=== PATIENT | male | born 1930 | race Caucasian/White ===

== ENCOUNTER → 2016-08-08 | Outpatient (CLI) | payer OTHER ==
[~2016-08-08] MED LIST: ASPI81TA28 PO; ATROPO SL; ATV5 SL; ATV5X PO; BIMA0.01 OPB; DORZ2SOL20 OPB; FERR1TAB23 PO; FLM4 PO; HYDR-5688 PO; INSDGIPEN SC; INSDGIPEN SQ; LEVO175T3 PO; LPR25 PO; LSN20 PO; MORP1INJ SL; NRV/10 PO; NVLGIPEN SC; OMEP20CA9 PO; PLV75 PO; SYN125 PO; TRIA37.5 PO; ZCR80 PO; hydrocodone PO
[2016-08-08 12:41] LABS: BASO % 0.3 %; BASO ABS # 0.03 K/uL (0-0.2); COMPLETE YES; EOS % 1.3 %; HEMATOCRIT 48.8 % (42-52); IG% 0.2 %; LYMPH % 19.7 %; LYMPH ABS # 2.02 K/uL (1.2-3.4); MEAN CELL VOLUME 90.4 fL (80-100); MEAN CORPUSCULAR HEMOGLOBIN 31.1 pg (25-34); MEAN CORPUSCULAR HGB CONC 34.4 g/dl (32-36); MONO % 9.1 %; NEUT % 69.4 %; PLATELET COUNT 190 K/uL (130-400); WHITE BLOOD COUNT 10.27 K/uL (4.8-10.8)
[2016-08-08 13:02] LABS: ALT/SGPT 26 U/L (12-78); AST/SGOT 14 U/L (15-37); BLOOD UREA NITROGEN 25 mg/dl (7-18); BUN/CREATININE RATIO 22.5 (10-20); CARBON DIOXIDE 29 mmol/L (21-32); CHLORIDE 98 mmol/L (98-107); CHOLESTEROL 149 mg/dl (0-200); GLUCOSE 123 mg/dl (70-99); SODIUM 136 mmol/L (136-145); TRIGLYCERIDES 123 mg/dl (0-150); VERY LOW DENSITY LIPOPROT CALC 25 mg/dl
[2016-08-08 13:13] LABS: ALB/GLOB RATIO 1.1 (0.9-2); ALKALINE PHOSPHATASE 84 U/L (45-117); CHOLESTEROL/HDL RATIO 3.4; HDL CHOLESTEROL 44 mg/dl
[2016-08-08 13:17] LABS: ESTIMATED AVERAGE GLUCOSE 137 mg/dl; HA1C FLAG Normal (Normal)
[2016-08-08 13:23] LABS: CALCIUM 9.5 mg/dl (8.5-10.1)
== END | disposition home or self-care (01) ==
LOC: C.LABSPEC 12:13
PROVIDERS: ATTEND Internal Medicine
DX: Z00.01 Encounter for general adult medical examination with abnormal findings (principal); I10 Essential (primary) hypertension; E11.9 Type 2 diabetes mellitus without complications; I25.10 Atherosclerotic heart disease of native coronary artery without angina pectoris; R53.83 Other fatigue

== ENCOUNTER 2016-09-23 12:44 | Emergency (ER) | payer OTHER ==
[~2016-09-23] VITALS: Ht 165.1 cm; Wt 78.0 kg
[~2016-09-23 12:44] MED LIST changes: -ASPI81TA28 PO; -ATROPO SL; -ATV5 SL; -ATV5X PO; -FERR1TAB23 PO; -HYDR-5688 PO; -INSDGIPEN SC; -LEVO175T3 PO; -MORP1INJ SL; -NVLGIPEN SC; -PLV75 PO; -hydrocodone PO
[2016-09-23 12:48] VITALS: TEMP 36.6; Ht 165.1 cm; Wt 78.0 kg
--- NOTE | 2016-09-23 13:11 | EMERGENCY ROOM VISIT NOTE ---
History Report prepared by Anastasiya: Patricia Mireles Under the Supervision of: Dr. Carloz Choudhury M.D. First contact with patient: 13:04 Chief Complaint: GROIN PAIN Stated Complaint: GROIN PAIN W/WALKING History of Present Illness The patient is an 86 year old male who presents to the Emergency Room with complaints of persistent right groin pain that began yesterday. He currently rates his discomfort as a 3/10 in severity. The patient states that his pain just started suddenly. He reports worsened pain with ambulation. The patient reports normal urination and bowel movements. He describes his discomfort as a shooting pain. Per the nursing notes, the patient denies any history of kidney stones. Nursing notes report that the patient is scheduled for an upcoming vascular surgery with Dr. Valenzuela. Source of History: patient Onset: yesterday Position: other (right groin) Symptom Intensity: 3/10 Quality: other (shooting) Timing: other (persistent) Modifying Factors (Worsening): other (ambulation) Review of Systems All systems have been listed, reviewed, and are negative other than those previously mentioned. Please see Additional Medical History Sheet. Past Medical & Surgical Medical Problems: (1) Aortocoronary Bypass (2) Coronary Atherosclerosis Of [place] Coronary Vessel (3) Elev Bl Pres W/O Hypertn (4) GI BLEED, ANEMIA, CAD, PAD (5) Glaucoma Nos (6) Hyperlipidemia Nec/Nos (7) Hypertension Nos (8) Hypothyroidism Nos (9) LIGHTHEADEDNESS, CAD, ASVD,BRADYCARDIA (10) Regular Astigmatism Family History Cancer Heart disease Hypertension Social History Smoking Status: Former Smoker Alcohol Use: none Drug Use: none Marital Status: Housing Status: lives alone Occupation Status: retired Current/Historical Medications Scheduled Amlodipine Besylate (Amlodipine Besylate), 10 MG PO DAILY Bimatoprost (Lumigan), 1 DROP OPB HS Clopidogrel Bisulfate (Clopidogrel), 75 MG PO DAILY Dorzolamide Hcl-Timolol Maleat (Cosopt Oph), 1 DROP OPB BID Insulin Glargine (Lantus Solostar), 35 UNITS SQ QAM Insulin Glargine (Lantus Solostar), 15 UNITS SQ QPM Levothyroxine Sodium (Levothyroxine Sodium), 175 MCG PO DAILY Lisinopril (Lisinopril), 20 MG PO BID Metoprolol Tartrate (Lopressor), 25 MG PO BID Omeprazole (Prilosec), 20 MG PO DAILY Simvastatin (Simvastatin), 80 MG PO DAILY Tamsulosin HCl (Tamsulosin HCl), 0.4 MG PO QAM Triamterene/Hctz (Dyazide 37.5MG/25MG), 1 TAB PO DAILY Scheduled PRN Lorazepam (Lorazepam), 0.5 MG PO BID PRN for Anxiety Allergies Coded Allergies: No Known Allergies (Unverified , 02/15/15) Physical Exam Vital Signs Date Time Temp Pulse Resp B/P (MAP) Pulse Ox O2 Delivery O2 Flow Rate FiO2 09/23/16 12:48 36.6 70 20 126/68 98 Room Air Physical Exam GENERAL: Patient awake, alert, oriented x 3. Patient follows commands. Patient does not appear toxic. Patient is adequately hydrated and well- nourished. SKIN: No erythema, pallor, cyanosis or rash HEENT: Normal head, pupils equal, reactive to light and accommodation. Neck: Without adenopathy, no neck vein distention. LUNGS: Clear to auscultation. No wheezes, no rales, no rhonchi. HEART: No murmurs. No gallops. No rubs ABDOMEN: No masses, no rebound, no hepatomegaly or splenomegaly. : Patient has left inguinal hernia, no incarceration. EXTREMITIES: No signs of trauma. No pedal or pretibial edema. No calf or thigh tenderness. NEUROLOGIC: Cranial nerves II-XII within normal limits. No gross motor sensory function deficits. Medical Decision & Procedures ER Provider Diagnostic Interpretation: US results are interpretations by the radiologist and per my review. ABDOMEN FOR HERNIA CLINICAL HISTORY: Suspected right inguinal hernia. Groin pain when walking. COMPARISON STUDY: CT of the abdomen and pelvis October 14, 2015. FINDINGS: Note is made of a reducible fat-containing right inguinal hernia. No bowel loops were identified within the hernia sac. IMPRESSION: Reducible fat-containing right inguinal hernia. Electronically signed by: Vladislav Arriola M.D. 09/23/2016 2:45 PM Dictated Date/Time: 09/23/2016 2:44 PM ED Course 1305: Past medical records reviewed. The patient was evaluated in room A4B. A complete history and physical examination was performed. 1459: I reevaluated the patient and he is resting comfortably. I discussed the exam findings with him and his family and I discussed the treatment plan. He verbalized complete understanding and agreement. He is ready to go home. Medical Decision Nurses notes reviewed. Medical history sheet reviewed. Differential diagnosis includes but is not limited to: inguinal hernia, testicular torsion, hydrocele, muscular strain. Clinically the patient has a right inguinal hernia without incarceration. Ultrasound confirms this diagnosis. The patient is in minimal pain at this time. He is scheduled to have vascular surgery within the next few days so the hernia repair will be delayed. The patient is to follow-up with his family physician and general surgeon. Medication Reconciliation: I attest that I have personally reviewed the patient' s current medication list. Blood pressure Screening: Patient was found to have normal blood pressure on screening and does not require follow up. Impression Primary Impression: Right inguinal hernia Scribe Attestation The scribe's documentation has been prepared under my direction and personally reviewed by me in its entirety. I confirm that the note above accurately reflects all work, treatment, procedures, and medical decision making performed by me. Departure Information Dispostion Home / Self-Care Referrals Wesley Dale M.D. (PCP) Forms HOME CARE DOCUMENTATION FORM, IMPORTANT VISIT INFORMATION Patient Instructions ED Hernia Inguinal, My [facility] Additional Instructions Follow-up with your family physician and general surgeon. Avoid any heavy lifting. Continue all of your current medications as prescribed.
[2016-09-23] MEDS ORDERED: ATV5X PO (14:03)
[2016-09-23] MEDS ORDERED: PLV75 PO (14:03)
[2016-09-23] MEDS ORDERED: LEVO175T3 PO (14:03)
--- NOTE | 2016-09-23 14:47 | DIAGNOSTIC IMAGING REPORT ---
ABDOMEN FOR HERNIA CLINICAL HISTORY: Suspected right inguinal hernia. Groin pain when walking. COMPARISON STUDY: CT of the abdomen and pelvis October 14, 2015. FINDINGS: Note is made of a reducible fat-containing right inguinal hernia. No bowel loops were identified within the hernia sac. IMPRESSION: Reducible fat-containing right inguinal hernia. Electronically signed by: Vladislav Arriola M.D. 09/23/2016 2:45 PM Dictated Date/Time: 09/23/2016 2:44 PM
[2016-09-23 15:15] VITALS: BP 123/71; PULSE 67; O2SAT 99
[2016-12-08] MEDS ORDERED: INSDGIPEN SC ×2 (08:51)
[2016-12-08] MEDS ORDERED: hydrocodone PO (09:13)
== END 2016-09-23 15:24 | disposition home or self-care (01) ==
LOC: C.EDB 12:46 → C.EDA 15:24
DX: K40.90 Unilateral inguinal hernia, without obstruction or gangrene, not specified as recurrent (principal); I25.10 Atherosclerotic heart disease of native coronary artery without angina pectoris; I73.9 Peripheral vascular disease, unspecified; H40.9 Unspecified glaucoma; I10 Essential (primary) hypertension; E03.9 Hypothyroidism, unspecified; E78.5 Hyperlipidemia, unspecified; Z87.891 Personal history of nicotine dependence; Z95.1 Presence of aortocoronary bypass graft; Z82.49 Family history of ischemic heart disease and other diseases of the circulatory system; Z79.02 Long term (current) use of antithrombotics/antiplatelets; Z79.899 Other long term (current) drug therapy

== ENCOUNTER 2016-09-25 05:12 | Day surgery (SDC) | payer OTHER ==
[2016-09-25] VITALS (10 sets, daily range): BP systolic 107–152; BP diastolic 52–74; PULSE 51–66; TEMP 36.6–36.8; O2SAT 93–97; Ht 165.1 cm; Wt 78.0 kg
[~2016-09-25] VITALS: Ht 165.1 cm; Wt 78.0 kg
[~2016-09-25 05:12] MED LIST changes: +ATV5X PO; +LEVO175T3 PO; +PLV75 PO; -SYN125 PO
[2016-09-25] MEDS ORDERED: SODIUM CHLORIDE 0.9% 1000ML IV SCH (06:00)
[2016-09-25] MEDS ORDERED: CEFAZOLIN 1000MG/55 ML D5W IV SCH (06:00)
--- NOTE | 2016-09-25 06:07 | History and Physical ---
History & Physical Date of Service Sep 25, 2016. History & Physical CC: Ischemic left foot HPI: Mr. Slaughter was seen in the office for a followup appointment today regarding his vascular issues, but initially this appointment was made for surveillance of his carotid disease; however, we will also reevaluated the patient for his arterial disease, which is well known. The patient denies any complaints related to his carotid disease including any unilateral weakness, numbness or tingling, facial droop, episodic confusion, difficulty speaking or swallowing or unilateral vision changes. An ultrasound of his carotids performed prior to today's appointment demonstrates no significant change in comparison with the previous ultrasound. Additionally, it demonstrates 60%-69% stenosis of his left internal carotid artery and no significant stenosis in his right, a normal flow in both subclavians and antegrade flow in both vertebrals. This is otherwise without any change from previous ultrasound. When discussing the patient's arterial disease and symptoms with the patient, he specifically denies any rest pain when in bed at night. He also denies any nonhealing wounds or ulcerations or calf claudication. He states that he occasionally gets discomfort in his left foot when he ambulates; however, he denies any discomfort in his calf or thigh muscles. He states that he began to have some red dots appear on his left foot a few weeks ago. He is unable to pinpoint the exact day. He and his daughter who was present with him today as well did have some concerns regarding that. ALLERGIES: No known allergies. MEDICATIONS: Reconciled on the chart and include the following: Amlodipine, clopidogrel, Cosopt ophthalmic solution, Dyazide, Lantus, lisinopril, Lumigan ophthalmic solution, metoprolol, Prilosec, simvastatin, Synthroid and tamsulosin. PAST MEDICAL HISTORY: Positive for coronary artery disease, status post 4- vessel coronary artery bypass graft back in 2005, hypertension, type 2 diabetes mellitus, hypothyroidism, carotid artery stenosis, a left parietal CVA diagnosed in 2014 without any residual deficits. PAST SURGICAL HISTORY: Positive for coronary artery bypass graft x4 in 2006, cataract surgery, excision of parotid gland, repair of inguinal hernia and tonsillectomy. FAMILY HISTORY: Positive for colon cancer. SOCIAL HISTORY: Positive for a past history of tobacco use. The patient states he used to smoke 3 packs a day for 37 years and quit in 1979. He denies alcohol or drug use. REVIEW OF SYSTEMS: Negative for fatigue, fever, sweats, weight loss, exercise intolerance, abnormal moles or rashes, vision changes or photophobia, ear pain, sinus problems or sore throat, cough, shortness of breath, hemoptysis or wheezing, chest pain, palpitations or syncope. He does admit to occasional bilateral lower extremity edema, which is mild. He denies abdominal pain, nausea, vomiting, diarrhea, constipation, dysuria, hematuria, rest pain, nonhealing wounds or ulcers or other complaints. On physical exam, his vital signs are as follows: A blood pressure of 164/64 in the right arm, 154/70 in the left, heart rate is 56, oxygen saturation 97% on room air. Constitutional: In general, the patient is a mildly chronically ill-appearing elderly male in no acute distress. He is somewhat hard of hearing and has hearing aids present. His carotids do not demonstrate a bruit. Lungs are clear. Heart is regular. The patient's bilateral femoral pulses are +1. His lower extremity distal pulses are nonpalpable. His right foot demonstrates good Doppler signals distally with brisk capillary refill, no sign of distal ischemia. His left foot, the toes are somewhat cool with capillary refill at 6 seconds. It appears ischemic in color. He does appear to have a purpuric type rash to the dorsal aspect of his forefoot and toes. This is nontender. There is no warmth as well as significant dependent rubor. He has good movement of the toes and foot and as I said denies any pain or tenderness, and states that this discoloration there has been unchanged for a few weeks now. 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 I have discussed the risks options and benefits of the procedure with the patient. The patient understands the risks options and benefits and agrees to the procedure.
[2016-09-25] MEDS ORDERED: ASPI81TA28 PO (06:08)
[2016-09-25] MEDS ORDERED: FERR1TAB23 PO (06:08)
[2016-09-25 06:14] LABS: BLOOD UREA NITROGEN 19 mg/dl (7-18); CREATININE 0.99 mg/dl (0.60-1.40)
--- NOTE | 2016-09-25 07:40 | History & Physical Bridge Note ---
H&P Re-Evaluation Bridge Note: I have examined the patient, reviewed the History & Physical and in the interval since the performance of the History & Physical I have noted the following changes of clinical significance: No changes noted
--- NOTE | 2016-09-25 07:41 | Procedure Note ---
Pre-Mod Sedation Assessment General Date of Moderate Sedation: Sep 25, 2016. Vital Signs: Vital Signs Past 12 Hours Date Time Temp Pulse Resp B/P (MAP) Pulse Ox O2 Delivery O2 Flow Rate FiO2 09/25/16 06:13 36.8 66 20 152/74 (100) 97 Room Air Pre-Sedation Airway Assessment Oral Cavity: WNL Short Thick Neck: No Hx of Sleep Apnea: No Smoking Status: Former Smoker Mallampati Classification: Class I ASA Classification: Class II Notes The planned sedation has been discussed with the patient and consent obtained. I have identified the patient, determined the appropriateness of sedation and have assessed the patient immediately prior to the procedure. All medicine(s) and interventions are by my order.
[2016-09-25] MEDS ORDERED: FENTANYL CITRATE INJ 50 MCG/1 ML 2 ML VIAL ONE (07:42)
[2016-09-25] MEDS ORDERED: MIDAZOLAM HCL 1 MG/ML 2ML VIAL ONE (07:42)
[2016-09-25] MEDS ORDERED: HEPARIN SOD (PORCINE) 1000 UNIT/ML 10 ML VIAL ONE (07:42)
[2016-09-25] MEDS ORDERED: MIDAZOLAM HCL 1 MG/ML 2ML VIAL IV ONE (08:14)
[2016-09-25] MEDS ORDERED: FENTANYL CITRATE INJ 50 MCG/1 ML 2 ML VIAL IV ONE (08:16)
[2016-09-25] MEDS ORDERED: LIDOCAINE HCL 1% 20 ML VIAL INFIL ONE (08:53)
[2016-09-25] MEDS ORDERED: IODIXANOL (VISIPAQUE) 270 MG/ML 150ML IV ONE (08:53)
--- NOTE | 2016-09-25 09:19 | Procedure Note ---
Post-Moderate Sedation Plan General Date of Moderate Sedation Sep 25, 2016. Vital Signs: Vital Signs Past 12 Hours Date Time Temp Pulse Resp B/P (MAP) Pulse Ox O2 Delivery O2 Flow Rate FiO2 09/25/16 07:53 36.8 66 20 152/74 97 Room Air 09/25/16 06:13 36.8 66 20 152/74 (100) 97 Room Air Review - Discharge Plan Post Moderate Sedation Plan: On clinical assessment, the patient appears to have tolerated the conscious sedation without complications. Patient is recovering as anticipated. Patient will continue to be monitored by nursing and may be discharged when conscious sedation discharge criteria are met.
--- NOTE | 2016-09-25 09:19 | [facility] Post Operative Brief Note ---
Immediate Operative Summary Operative Date Sep 25, 2016. 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
--- NOTE | 2016-09-25 09:21 | Discharge Instructions ---
Discharge Instructions Date of Service Sep 25, 2016. Visit Reason for Visit: Left Superficial Femoral Artery Occulusion W/Rest Discharge Discharge Diagnosis / Problem: Left popliteal artery occlusion Discharge Goals Goal(s): Diagnostic testing Activity Recommendations Activity Limitations: per Instructions/Follow-up section Anesthesia . Post Anesthesia Instructions: If you have had General Anesthesia or IV Sedation: * Do not drive today. * Resume driving when surgeon permits. * Do not make important decisions or sign legal documents today. * Call surgeon for: 1. Temperature elevations greater than 101 degrees F. 2. Uncontrollable pain. 3. Excessive bleeding. 4. Persistent nausea and vomiting. 5. Medication intolerance (nausea, vomiting or rash). * For nausea and vomiting use only clear liquids such as: tea, soda, bouillon until nausea subsides, then gradually increase diet as tolerated. * If you have any concerns or questions, call your surgeon's office. If physician is unavailable and it is an emergency, call 911 or go to the nearest emergency room. . Instructions / Follow-Up Instructions / Follow-Up Call [phone] to schedule a follow up appointment if one not already scheduled. SPECIAL CARE INSTRUCTIONS: Medications: * Continue to take your medications as directed. If you have been given a prescription for Plavix, please fill it immediately and take as directed. Incision Care: * Your puncture site may have some bruising and minor swelling for about one week. * You will have a small dressing covering your puncture site. You may remove the dressing after 24 hours and shower. You may let the warm soapy water run over it, but be sure to dry the puncture site well and keep it dry. * DO NOT IMMERSE THE INCISION IN A TUB/POOL/etc. UNTIL HEALED. * Puncture sites should be kept covered with a band-aid until it begins to heal. Restrictions: * Depending on whether you leg or arm was punctured to access the arteries, you will be required to lay flat, hold your arm still, or both, for about 4 hours after the procedure to prevent bleeding. * Limit your activity for the first 48 hours. You may walk and go up and down steps. Avoid excessive bending or movement at the puncture site. Possible Complications: * Excessive Swelling - after blood flow is improved you may notice increased swelling in the lower legs. This is a normal response. This usually depends on the amount of blockages in the leg, how long they have been there prior to your procedure and how much blood flow was restored. Elevating your legs will help to improve this. Please notify our office ([phone] ) if the swelling does not go away after lying in bed overnight. * Infection/Drainage/Bleeding - Drainage or bleeding from the puncture site should be minimal. If you have excessive bleeding or drainage, call our office ([phone]) right away. * Pain - You may experience some mild pain or soreness at your puncture site. If your pain does not improve, please contact our office ([phone]). Call your doctor and seek emergent treatment if you develop: * Temperature above 101 degrees * Any fever or chills * Any redness or purulent drainage from the puncture site * Any new dusky/blue colored toes or feet with coolness or sharp or aching pain. SKIN IRRITATION: * You may experience some redness and/or swelling in the area where radiation was administered. If any skin irritation occurs, please contact your family physician. FOLLOW UP VISIT: Keep any scheduled doctor appointments. Diet Recommendations Recommended Home Diet: resume previous diet Procedures Procedures Performed: Left Lower Extremity Angiogram Moderate Sedation [id number] Pending Studies Studies pending at discharge: no Medical Emergencies . Who to Call and When: Medical Emergencies: If at any time you feel your situation is an emergency, please call 911 immediately. . Non-Emergent Contact Non-Emergency issues call your: Surgeon . . "Provider Documentation" section prepared by Barber Valenzuela. .
--- NOTE | 2016-11-01 07:43 | [facility] Operative Report ---
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 He is admitted at this time for arteriography and possible intervention. He was found to have a proximal popliteal artery occlusion on noninvasive testing. He understands the risks options benefits and agrees to go ahead with this procedure. Description of Procedure Patient was taken to the angiogram suite and placed in the supine position. After both groins are prepped and draped in a sterile manner local anesthetic was administered to the right groin. A percutaneous puncture was made of the right common femoral artery and an 035 wire was inserted. A 5 Amharic sheath was inserted over the wire. Using a rim catheter and an 035 Glidewire the left iliac was cannulated from the right side. The rim cath was advanced down to the distal external iliac artery. Arteriography left lower extremity was then performed. This showed the common femoral and profunda femoral arteries to be widely patent with moderate amount of calcification seen. Superficial femoral artery was also patent down to the adductor hiatus where a short occlusion was seen with heavy calcifications. There is also a significant narrowing of the mid to distal popliteal artery measuring approximately 80%. This was a very short lesion. Runoff vessels showed the anterior tibial and posterior tibial arteries to be occluded. The peroneal artery was patent down to the ankle with runoff onto the foot. We did attempt to cross the popliteal occlusion with an 035 glidewire and a quick cross catheter. However the lesion was too heavily calcified to be crossed. We then injected the sheath on the right side which showed that the puncture was anterior in the common femoral artery. A Star closure device is used to close the puncture site. Adequate hemostasis was noted. The patient left the angio suite in good condition and tolerated procedure well. I attest to the content of the Intraoperative Record and any orders documented therein. Any exceptions are noted below.
[2016-12-08] MEDS ORDERED: INSDGIPEN SC ×2 (08:51)
[2016-12-08] MEDS ORDERED: hydrocodone PO (09:13)
== END 2016-09-25 14:00 | disposition home or self-care (01) ==
LOC: C.ACU 05:12
PROVIDERS: ATTEND Surgery Vascular Surgery
DX: I74.3 Embolism and thrombosis of arteries of the lower extremities (principal); I99.8 Other disorder of circulatory system; I25.10 Atherosclerotic heart disease of native coronary artery without angina pectoris; Z95.1 Presence of aortocoronary bypass graft; I10 Essential (primary) hypertension; E11.9 Type 2 diabetes mellitus without complications; E03.9 Hypothyroidism, unspecified; Z86.73 Personal history of transient ischemic attack (TIA), and cerebral infarction without residual deficits; Z98.49 Cataract extraction status, unspecified eye; Z98.890 Other specified postprocedural states; Z90.89 Acquired absence of other organs; Z87.891 Personal history of nicotine dependence

== ENCOUNTER 2016-12-15 06:04 | Inpatient (IN) | payer OTHER ==
[2016-12-08 08:51] VITALS: Ht 165.1 cm; Wt 77.6 kg
--- NOTE | 2016-12-08 09:38 | PAT Medication Instructions ---
Service Date Dec 08, 2016. Current Home Medication List Amlodipine Besylate (Amlodipine Besylate), 10 MG PO DAILY Aspirin (Aspirin Ec), 81 MG PO QAM Bimatoprost (Lumigan), 1 DROP OPB HS Clopidogrel Bisulfate (Clopidogrel), 75 MG PO QAM Dorzolamide Hcl-Timolol Maleat (Cosopt Oph), 1 DROP OPB BID Ferrous Sulfate (Iron), 325 MG PO QAM Insulin Glargine (Lantus Solostar), 35 UNITS SC QAM Insulin Glargine (Lantus Solostar), 15 UNITS SC QPM Levothyroxine Sodium (Levothyroxine Sodium), 175 MCG PO QAM Lisinopril (Lisinopril), 20 MG PO BID Lorazepam (Lorazepam), 0.5 MG PO BID PRN for Anxiety Metoprolol Tartrate (Lopressor), 25 MG PO BID Omeprazole (Prilosec), 20 MG PO QPM Simvastatin (Simvastatin), 80 MG PO QAM Tamsulosin HCl (Tamsulosin HCl), 0.4 MG PO QAM Triamterene/Hctz (Dyazide 37.5MG/25MG), 1 TAB PO QAM [hydrocodone ], Unknown Dose PO Q6 PRN for Pain Medication Instructions For Your Scheduled Surgery - Check with surgeon/Dr. Tai Calvo for instructions: Clopidogrel Bisulfate (Clopidogrel), 75 MG PO QAM - Hold the following medications the morning of surgery: Tamsulosin HCl (Tamsulosin HCl), 0.4 MG PO QAM Triamterene/Hctz (Dyazide 37.5MG/25MG), 1 TAB PO QAM Lisinopril (Lisinopril), 20 MG PO BID Ferrous Sulfate (Iron), 325 MG PO QAM - Take the following medications the morning of surgery with a sip of water: [hydrocodone ], Unknown Dose PO Q6 PRN for Pain (okay to take up to 4 hours prior to surgery if needed) Simvastatin (Simvastatin), 80 MG PO QAM Lorazepam (Lorazepam), 0.5 MG PO BID PRN for Anxiety (if needed) Metoprolol Tartrate (Lopressor), 25 MG PO BID Levothyroxine Sodium (Levothyroxine Sodium), 175 MCG PO QAM Dorzolamide Hcl-Timolol Maleat (Cosopt Oph), 1 DROP OPB BID Amlodipine Besylate (Amlodipine Besylate), 10 MG PO DAILY Aspirin (Aspirin Ec), 81 MG PO QAM - Hold the following medications as scheduled the night before surgery: Lisinopril (Lisinopril), 20 MG PO BID - Take the following medications as scheduled the night before surgery: [hydrocodone ], Unknown Dose PO Q6 PRN for Pain (if needed) Lorazepam (Lorazepam), 0.5 MG PO BID PRN for Anxiety (if needed) Metoprolol Tartrate (Lopressor), 25 MG PO BID Omeprazole (Prilosec), 20 MG PO QPM Insulin Glargine (Lantus Solostar), 15 UNITS SC QPM Dorzolamide Hcl-Timolol Maleat (Cosopt Oph), 1 DROP OPB BID Bimatoprost (Lumigan), 1 DROP OPB HS - For Insulin Dependent Diabetic patients: Test blood sugar A.M. of surgery. - If blood sugar greater than 150, take half of your regular dose of: Insulin Glargine (Lantus Solostar), take 17 units - If blood sugar less than 150, do not take any: Insulin Glargine If you have any questions please call us at [phone] or [phone] or [phone]
--- NOTE | 2016-12-08 10:11 | DIAGNOSTIC IMAGING REPORT ---
TWO VIEW CHEST CLINICAL HISTORY: Preoperative examination. FINDINGS: PA and lateral chest radiographs are compared to study dated 09/21/2015 and correlated with chest CT dated 10/14/2015. The PA view is degraded by patient rotation. The patient is status post midline sternotomy. The heart is enlarged and there is atherosclerotic calcification of the thoracic aorta. Emphysema and chronic interstitial thickening are similar to previous. No airspace consolidation or pleural effusion is identified. There is no pneumothorax. The skeletal structures are osteopenic. The bony thorax appears intact. Chronic changes noted in the right humeral head. IMPRESSION: Cardiomegaly and emphysema with no active disease in the chest. Electronically signed by: Brad Kc M.D. 12/08/2016 10:09 AM Dictated Date/Time: 12/08/2016 10:08 AM
[2016-12-08 10:36] LABS: BASO % 0.3 %; BASO ABS # 0.02 K/uL (0-0.2); COMPLETE YES; EOS % 0.8 %; HEMATOCRIT 42.8 % (42-52); IG% 0.2 %; LYMPH % 21.7 %; LYMPH ABS # 1.44 K/uL (1.2-3.4); MEAN CELL VOLUME 89.7 fL (80-100); MEAN CORPUSCULAR HEMOGLOBIN 30.6 pg (25-34); MEAN CORPUSCULAR HGB CONC 34.1 g/dl (32-36); MEAN PLATELET VOLUME 10.2 fL (7.4-10.4); MONO % 12.3 %; NEUT % 64.7 %; PLATELET COUNT 197 K/uL (130-400); RED BLOOD COUNT 4.77 M/uL (4.7-6.1); WHITE BLOOD COUNT 6.64 K/uL (4.8-10.8)
[2016-12-08 10:49] LABS: PROTHROMBIN TIME (PATIENT) 10.9 SECONDS (9.0-12.0)
[2016-12-08 11:51] LABS: BUN/CREATININE RATIO 24.6 (10-20); CALCIUM 8.7 mg/dl (8.5-10.1); CREATININE 0.98 mg/dl (0.60-1.40); POTASSIUM 4.1 mmol/L (3.5-5.1)
[~2016-12-15] VITALS: Ht 165.1 cm; Wt 77.6 kg
[2016-12-15] VITALS (27 sets, daily range): BP systolic 72–160; BP diastolic 34–67; PULSE 60–87; TEMP 36.5–36.8; O2SAT 88–99
[~2016-12-15 06:04] MED LIST changes: +ASPI81TA28 PO; +CEFAZOLIN 1000MG/55 ML D5W IV SCH; +FERR1TAB23 PO; +INSDGIPEN SC; -INSDGIPEN SQ; +LACTATED RINGER'S 1000ML 1,000 ML IV SCH; +hydrocodone PO
--- NOTE | 2016-12-15 06:29 | History and Physical ---
History & Physical Date of Service Dec 15, 2016. History & Physical CC: Ischemic left foot HPI: Mr. Slaughter is an 86 year old white male being seen for surveillance of his carotid disease; however, he was also reevaluated for his arterial disease, which is well known. The patient denies any complaints related to his carotid disease including any unilateral weakness, numbness or tingling, facial droop, episodic confusion, difficulty speaking or swallowing or unilateral vision changes. An ultrasound of his carotids performed prior to today's appointment demonstrates no significant change in comparison with the previous ultrasound. Additionally, it demonstrates 60%-69% stenosis of his left internal carotid artery and no significant stenosis in his right, a normal flow in both subclavians and antegrade flow in both vertebrals. This is otherwise without any change from previous ultrasound. When discussing the patient's arterial disease and symptoms with the patient, he does complain of rest pain when in bed at night. He denies any nonhealing wounds or ulcerations or calf claudication. He states that he gets discomfort in his left foot when he ambulates; however, he denies any discomfort in his calf or thigh muscles. He states that he began to have some red dots appear on his left foot a few weeks ago. He is unable to pinpoint the exact day. He and his daughter who was present with him today as well did have some concerns regarding that. He was found to have an SFA occlusion but failed at an endovascular approach. His rest pain has worsened and his foot has become more reddened. ALLERGIES: No known allergies. MEDICATIONS: Reconciled on the chart and include the following: Amlodipine, clopidogrel, Cosopt ophthalmic solution, Dyazide, Lantus, lisinopril, Lumigan ophthalmic solution, metoprolol, Prilosec, simvastatin, Synthroid and tamsulosin. PAST MEDICAL HISTORY: Positive for coronary artery disease, status post 4- vessel coronary artery bypass graft back in 2005, hypertension, type 2 diabetes mellitus, hypothyroidism, carotid artery stenosis, a left parietal CVA diagnosed in 2014 without any residual deficits. PAST SURGICAL HISTORY: Positive for coronary artery bypass graft x4 in 2005, cataract surgery, excision of parotid gland, repair of inguinal hernia and tonsillectomy. FAMILY HISTORY: Positive for colon cancer. SOCIAL HISTORY: Positive for a past history of tobacco use. The patient states he used to smoke 3 packs a day for 37 years and quit in 1979. He denies alcohol or drug use. REVIEW OF SYSTEMS: Negative for fatigue, fever, sweats, weight loss, exercise intolerance, abnormal moles or rashes, vision changes or photophobia, ear pain, sinus problems or sore throat, cough, shortness of breath, hemoptysis or wheezing, chest pain, palpitations or syncope. He does admit to occasional bilateral lower extremity edema, which is mild. He denies abdominal pain, nausea, vomiting, diarrhea, constipation, dysuria, hematuria, rest pain, nonhealing wounds or ulcers or other complaints. On physical exam, his vital signs are as follows: A blood pressure of 164/64 in the right arm, 154/70 in the left, heart rate is 56, oxygen saturation 97% on room air. Constitutional: In general, the patient is a mildly chronically ill-appearing elderly male in no acute distress. He is somewhat hard of hearing and has hearing aids present. His carotids do not demonstrate a bruit. Lungs are clear. Heart is regular. The patient's bilateral femoral pulses are +1. His lower extremity distal pulses are nonpalpable. His right foot demonstrates good Doppler signals distally with brisk capillary refill, no sign of distal ischemia. His left foot, the toes are somewhat cool with capillary refill at 6 seconds. It appears ischemic in color. He does appear to have a purpuric type rash to the dorsal aspect of his forefoot and toes. This is nontender. There is no warmth as well as significant dependent rubor. He has good movement of the toes and foot and as I said denies any pain or tenderness, and states that this discoloration there has been unchanged for a few weeks now. 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 I have discussed the risks options and benefits of the procedure with the patient. The patient understands the risks options and benefits and agrees to the procedure.
[2016-12-15] MEDS ORDERED: FENTANYL CITRATE INJ 50 MCG/1 ML 2 ML VIAL ONE ×2 (07:00→10:59)
[2016-12-15] MEDS ORDERED: MIDAZOLAM HCL 1 MG/ML 2ML VIAL ONE (07:00)
[2016-12-15] MEDS ORDERED: IODIXANOL (VISIPAQUE) 270 MG/ML 50ML ONE (07:02)
[2016-12-15] MEDS ORDERED: GELATIN SPONGE SZ 100 ONE (07:02)
[2016-12-15] MEDS ORDERED: THROMBIN 5000 UNITS KIT ONE (07:03)
[2016-12-15] MEDS ORDERED: HEPARIN SOD (PORCINE) 1000 UNIT/ML 10 ML VIAL ONE ×2 (07:03→10:16)
[2016-12-15] MEDS ORDERED: CEFAZOLIN SOD 1 GM VIAL ONE (07:03)
[2016-12-15] MEDS ORDERED: PAPAVERINE HCL INJ 30 MG/ML 2 ML VIAL ONE (07:03)
[2016-12-15] MEDS ORDERED: HYDR-5688 PO (07:15)
[2016-12-15] MEDS ORDERED: TRIA37.5 PO (07:15)
[2016-12-15] MEDS ORDERED: LABETALOL HCL IV 5 MG/ML 20ML IV PRN (07:30)
[2016-12-15] MEDS ORDERED: ATROPINE SULFATE 0.1 MG/ML 5ML SYR IV PRN (07:30)
[2016-12-15] MEDS ORDERED: ONDANSETRON INJ 2 MG/ML 2 ML VIAL IV PRN (07:30)
[2016-12-15] MEDS ORDERED: HYDROmorphone INJ 2 MG/ML SYR/VIAL IV PRN (07:30)
[2016-12-15] MEDS: LIDOCAINE HCL 1% 20 ML VIAL ONE ×2 (08:54→12:00)
[2016-12-15] MEDS: BUPIVACAINE/EPINEPHRINE 0.5% MPF 1:200,000 10 ML VIAL ONE ×4 (08:54→12:01)
[2016-12-15] MEDS ORDERED: ROCURONIUM BROMIDE 10 MG/ML 5 ML VIAL IV ONE (09:06)
[2016-12-15] MEDS ORDERED: ETOMIDATE 2 MG/ML 20 ML VIAL IV ONE (09:06)
[2016-12-15] MEDS ORDERED: EpHEDrine SULFATE 50MG/5ML SYR ONE ×2 (09:06→10:16)
[2016-12-15] MEDS ORDERED: LIDOCAINE HCL 2% 2 ML VIAL (20MG/ML) ONE (09:06)
[2016-12-15] MEDS ORDERED: PROPOFOL IV EMULSION 10 MG/ML 20 ML VIAL IV ONE (09:06)
[2016-12-15] MEDS ORDERED: IODIXANOL (VISIPAQUE) 270 MG/ML 50ML IV ONE (10:01)
[2016-12-15] MEDS ORDERED: PHENYLEPHRINE HCL INJ 10 MG/ML VIAL ONE (10:16)
[2016-12-15] MEDS ORDERED: D5W AND 1/2NSS 1,000 ML IV SCH (12:03)
--- NOTE | 2016-12-15 12:03 | [facility] Post Operative Brief Note ---
Immediate Operative Summary Operative Date Dec 15, 2016. Pre-Operative Diagnosis Left Superficial Femoral Artery Occlusion with Ischemic Left Foot Post-Operative Diagnosis Left Superficial Femoral Artery Occlusion with Ischemic Left Foot Procedure(s) Performed Left femoral to popliteal hybrid bypass, exploration of peroneal artery, left lower extremity arteriogram with insertion of popliteal stent. Surgeon Nicolas Food Production Supervisor Surgeon(s) Kaylyn Barth PA-C Estimated Blood Loss 600 ml Findings doppler flow to collateral branch on foot, peroneal heavily calcified and not useable for anastomosis Specimens None. Anesthesia gen Complication(s) None Disposition Recovery Room / PACU
[2016-12-15] MEDS ORDERED: GLUCOSE 10 TABS/TUBE PO PRN (12:15)
[2016-12-15] MEDS ORDERED: ACETAMINOPHEN 325 MG TAB PO PRN (12:15)
[2016-12-15] MEDS ORDERED: GLUCAGON FOR INJ 1 MG VIAL SQ PRN (12:15)
[2016-12-15] MEDS ORDERED: LORAZEPAM 0.5 MG TAB PO PRN (12:15)
[2016-12-15] MEDS ORDERED: GLUCOSE 40% GEL 15 GM TUBE PO PRN (12:15)
[2016-12-15] MEDS ORDERED: MoRPHine SULFATE 4 MG/ML 1 ML CARP\\VIAL IV PRN (12:15)
[2016-12-15] MEDS ORDERED: DEXTROSE 50% 50 ML SYR IV PRN (12:15)
[2016-12-15 12:41] LABS: ISTAT HEMOGLOBIN 12.6 g/dl (14.0-18.0); ISTAT IONIZED CALCIUM 1.15 mmol/l (1.12-1.32)
--- NOTE | 2016-12-15 13:34 | Anesthesiology Progress Note ---
Anesthesia Post Op Note Date & Time Dec 15, 2016 at 13:33 Vital Signs Pain Intensity: 0 Vital Signs Past 12 Hours Date Time Temp Pulse Resp B/P (MAP) Pulse Ox O2 Delivery O2 Flow Rate FiO2 12/15/16 13:20 78 20 91/51 98 Nasal Cannula 3 12/15/16 13:10 76 22 100/49 99 Oxymask 10 12/15/16 13:00 79 20 97/49 99 Oxymask 10 12/15/16 12:50 36.2 76 18 92/67 99 Oxymask 10 12/15/16 06:55 36.5 60 20 136/57 95 Room Air 160/67 Notes Mental Status: alert / awake / arousable, participated in evaluation Pt Amnestic to Procedure: Yes Nausea / Vomiting: adequately controlled Pain: adequately controlled Airway Patency, RR, SpO2: stable & adequate BP & HR: stable & adequate Hydration State: stable & adequate Anesthetic Complications: no major complications apparent
[2016-12-15 13:45] LABS: HEMATOCRIT 36.2 % (42-52); MEAN CORPUSCULAR HEMOGLOBIN 30.4 pg (25-34); MEAN CORPUSCULAR HGB CONC 33.4 g/dl (32-36); MEAN PLATELET VOLUME 9.6 fL (7.4-10.4); PLATELET COUNT 199 K/uL (130-400); RED BLOOD COUNT 3.98 M/uL (4.7-6.1); WHITE BLOOD COUNT 17.05 K/uL (4.8-10.8)
[2016-12-15 14:19] LABS: BASO % 0.1 %; BASO ABS # 0.01 K/uL (0-0.2); COMPLETE YES; ECHINOCYTES 1+; EOS % 0.2 %; HYPERSEGMENTED POLYS 1+; IG% 0.4 %; LYMPH % 12.8 %; LYMPH ABS # 2.18 K/uL (1.2-3.4); NEUT % 77.5 %
[2016-12-15] MEDS: ONDANSETRON INJ 2 MG/ML 2 ML VIAL IV PRN (15:02)
[2016-12-15] MEDS ORDERED: PHENYLEPHRINE HCL INJ 20 MG in DEXTROSE 5% 500ML 500 ML IV PRN (15:14)
[2016-12-15] MEDS ORDERED: DEXTROSE 5% IV PRN (15:30)
[2016-12-15] MEDS ORDERED: PHENYLEPHRINE HCL IV PRN (15:30)
[2016-12-15] MEDS: CEFAZOLIN IV 1,000 MG in DEXTROSE 5% 50ML 50 ML IV SCH (15:49)
[2016-12-15] MEDS: INSULIN HUMAN REGULAR SC SCH ×2 (15:50→21:04)
--- NOTE | 2016-12-15 16:44 | Critical Care Consultation ---
Critical Care Consultation Date of Consultation: Dec 15, 2016. Attending Physician: Barber Valenzuela M.D. Reason for Consultation: Post operative management of fem-pop bypass History of Present Illness 86 year old male with known vascular disease was admitted to the ICU s/p left fem-pop bypass and popliteal artery stent placement He was seeing Dr. Valenzuela several months ago when he mentioned that he was having pain in his left lower extremity at night time. The pain started a 6-7 months ago and started getting progressively worse; thus waking him from sleep. He also stated that he started getting discomfort in his left foot when walking a short distance. A couple months ago he had angiography which showed an SFA occlusion and he went for endovascular surgery which failed at the time. He then went to Dr. Valenzuela's office last week as the pain in his leg was very severe and he was only able to walk half a block before the pain resolved. His foot had also become more red in colour and he had noticed some small red dots on his foot. He was scheduled for fem pop bypass surgery in order to circumvent the SFA occlusion. The surgery was done on 12/15/2016 in the morning The surgery performed was a left femoral to popliteal hybrid bypass with the use of synthetic material. He also had the insertion of a popliteal stent placed. We were consulted post op to evaluate and co-manage the patient. Past Medical/Surgical History PAST MEDICAL HISTORY: Positive for coronary artery disease, status post 4- vessel coronary artery bypass graft back in 2005, hypertension, type 2 diabetes mellitus, hypothyroidism, carotid artery stenosis, a left parietal CVA diagnosed in 2014 without any residual deficits, esophageal cancer (caught at very early stage, did not receive chemo, or radiation and is in remission) PAST SURGICAL HISTORY: Positive for coronary artery bypass graft x4 in 2005, cataract surgery, excision of parotid gland, repair of inguinal hernia and tonsillectomy. Family History Cancer Heart disease Hypertension Mother: heart attack in 70's Dad: of pulmonary emphysema Social History Smoking Status: Former Smoker (111 pack year smoking history) Drug Use: none Marital Status: Housing Status: lives alone Occupation Status: retired Allergies Coded Allergies: No Known Allergies (Unverified , 12/15/16) Home Medications Scheduled Amlodipine Besylate (Amlodipine Besylate), 10 MG PO DAILY Aspirin (Aspirin Ec), 81 MG PO QAM Bimatoprost (Lumigan), 1 DROP OPB HS Clopidogrel Bisulfate (Clopidogrel), 75 MG PO QAM Dorzolamide Hcl-Timolol Maleat (Cosopt Oph), 1 DROP OPB BID Ferrous Sulfate (Iron), 325 MG PO QAM Insulin Glargine (Lantus Solostar), 35 UNITS SC QAM Insulin Glargine (Lantus Solostar), 15 UNITS SC QPM Levothyroxine Sodium (Levothyroxine Sodium), 175 MCG PO QAM Lisinopril (Lisinopril), 20 MG PO BID Metoprolol Tartrate (Lopressor), 25 MG PO BID Omeprazole (Prilosec), 20 MG PO QPM Simvastatin (Simvastatin), 80 MG PO QAM Tamsulosin HCl (Tamsulosin HCl), 0.4 MG PO QAM Triamterene/Hctz (Dyazide 37.5MG/25MG), 1 TAB PO QAM Triamterene/Hctz (Dyazide 37.5MG/25MG), 1 CAP PO DAILY Scheduled PRN Hydrocodone/Acetaminophen 5MG/325MG (Lottie 5MG/325MG), 1 TAB PO TID PRN for Pain Lorazepam (Lorazepam), 0.5 MG PO BID PRN for Anxiety Current Inpatient Medications Current Inpatient Medications Medications (Trade) Dose Ordered Sig/[place] Route Start Time Stop Time Status Last Admin Dose Admin Cefazolin Sodium 55 ml @ 100 mls/hr PREOP IV 12/15/16 06:00 12/15/16 18:00 12/15/16 08:03 100 MLS/HR Lactated Ringer's 1,000 ml @ 80 mls/hr [id number] IV 12/15/16 06:00 12/16/16 06:59 12/15/16 07:00 80 MLS/HR Lactated Ringer's 1,000 ml @ 15 mls/hr Q24H IV 12/15/16 06:00 12/16/16 05:59 Acetaminophen (Tylenol Tab) 650 mg Q4H PRN PO 12/15/16 12:15 01/14/17 12:14 Oxycodone/ Acetaminophen (Percocet 5-325mg Tab) `1-2 TABS FOR MODER... Q4H PRN PO 12/15/16 12:15 12/29/16 12:14 Morphine Sulfate (MoRPHine SULFATE INJ) 4 mg Q2H PRN IV 12/15/16 12:15 12/29/16 12:14 Ondansetron HCl (Zofran Inj) 4 mg Q6H PRN IV 12/15/16 12:15 01/14/17 12:14 12/15/16 15:02 4 MG Pantoprazole Sodium 40 mg/ Syringe 10 ml @ 5 mls/min DAILY@11 IV 12/16/16 11:00 01/15/17 10:59 Cefazolin Sodium 1000 mg/Dextrose 55 ml @ 100 mls/hr Q8H IV 12/15/16 16:00 12/16/16 00:32 Enoxaparin Sodium (Lovenox Inj) 30 mg Q12 SQ 12/15/16 20:00 01/14/17 19:59 Dextrose/Sodium Chloride 1,000 ml @ 125 mls/hr Q8H IV 12/15/16 12:03 12/15/16 20:02 12/15/16 15:43 125 MLS/HR Aspirin (Ecotrin Tab) 81 mg QAM PO 12/16/16 09:00 01/15/17 08:59 Clopidogrel Bisulfate (plAVix TAB) 75 mg QAM PO 12/16/16 09:00 01/15/17 08:59 Dorzolamide/ Timolol (Cosopt Op Soln) 1 drops BID OPB 12/15/16 21:00 01/14/17 20:59 Insulin Glargine (Lantus Solostar Pen) 15 units QPM SC 12/15/16 21:00 01/14/17 20:59 Insulin Glargine (Lantus Solostar Pen) 35 units QAM SC 12/16/16 09:00 01/15/17 08:59 Levothyroxine Sodium (Synthroid Tab) 175 mcg DAILYBB PO 12/16/16 06:00 01/15/17 05:59 Lisinopril (Zestril Tab) 20 mg BID PO 12/15/16 21:00 01/14/17 20:59 Lorazepam (Ativan Tab) 0.5 mg BID PRN PO 12/15/16 12:15 01/14/17 12:14 Metoprolol Tartrate (Lopressor Tab) 25 mg BID PO 12/15/16 21:00 01/14/17 20:59 Simvastatin (Zocor Tab) 80 mg QAM PO 12/16/16 09:00 01/15/17 08:59 Tamsulosin HCl (Flomax Cap) 0.4 mg QAM PO 12/16/16 09:00 01/15/17 08:59 Triamterene/HCTZ (Dyazide 37.5/25 Mg Cap) 1 cap QAM PO 12/16/16 09:00 01/15/17 08:59 Amlodipine Besylate (Norvasc Tab) 10 mg DAILY PO 12/16/16 09:00 01/15/17 08:59 Bimatoprost (Lumigan 0.01%) 1 drops HS OPB 12/15/16 21:00 01/14/17 20:59 Ferrous Sulfate (Feosol Tab) 325 mg QAM PO 12/16/16 09:00 01/15/17 08:59 Insulin Human Regular (novoLIN-R) SLIDING SCALE IF C... ACHS SC 12/15/16 16:00 01/14/17 15:59 Glucose (Glucose 40% Gel) 15-30 GRAMS 15 GRAMS... UD PRN PO 12/15/16 12:15 01/14/17 12:14 Glucose (Glucose Chew Tab) 4-8 Tablets 4 Tabl... UD PRN PO 12/15/16 12:15 01/14/17 12:14 Dextrose (Dextrose 50% 50ML Syringe) 25-50ML OF 50% DW IV FOR... UD PRN IV 12/15/16 12:15 01/14/17 12:14 Glucagon (Glucagon Inj) 1 mg UD PRN SQ 12/15/16 12:15 01/14/17 12:14 Morphine Sulfate (MoRPHine SULFATE INJ) 2 mg Q2H PRN IV 12/15/16 13:45 12/29/16 13:44 Phenylephrine HCl 20 mg/Dextrose 500 ml @ 0 mls/hr Q0M PRN IV 12/15/16 15:30 01/14/17 15:29 12/15/16 15:43 57.8 MLS/HR Review of Systems Constitutional: No fever, No chills, No sweats Eyes: No worsening of vision, No diplopia ENT: No hearing loss, No trouble swallowing Respiratory: No cough, No shortness of breath Cardiovascular: No chest pain, No edema, No palpitations Abdomen: + nausea, No pain, No vomiting, No diarrhea, No constipation Musculoskeletal: No joint pain, No swelling, No calf pain Neurologic: No paralysis, No numbness/tingling, No balance problems Integumentary: No rash, No itch, No new/changing skin lesions Physical Exam Date Time Temp Pulse Resp B/P (MAP) Pulse Ox O2 Delivery O2 Flow Rate FiO2 12/15/16 14:34 68 20 81/43 (56) 96 Nasal Cannula 2.0 12/15/16 14:30 78 26 72/45 (54) 96 Nasal Cannula 2.0 12/15/16 14:23 80 22 93/42 (59) 95 Nasal Cannula 2.0 12/15/16 13:55 82 20 94/47 98 Nasal Cannula 3 12/15/16 13:40 36.7 81 20 94/47 98 Nasal Cannula 3 12/15/16 13:30 76 20 98/51 98 Nasal Cannula 3 12/15/16 13:20 78 20 91/51 98 Nasal Cannula 3 12/15/16 13:10 76 22 100/49 99 Oxymask 10 12/15/16 13:00 79 20 97/49 99 Oxymask 10 12/15/16 12:50 36.2 76 18 92/67 99 Oxymask 10 12/15/16 06:55 36.5 60 20 136/57 95 Room Air 160/67 General Appearance: well-appearing, no apparent distress, other (chronically ill appearing) Head: normocephalic Eyes: PERRLA, conjunctivae normal, pupils unequal (anisocoria) ENT: normal mouth exam, tonsillar exudates, tonsillar erythema Neck: normal range of motion, no tenderness, trachea midline, supple, no lymphadenopathy Respiratory: breath sounds normal, clear to auscultation, no respiratory distress Cardiovasular: no rub, no JVD, abnormal rhythm (occasional skipped beat), systolic murmur (distant heart sounds) Abdomen: non tender, normal bowel sounds, no rebound, no masses, no guarding Genitourinary - Male: external genitalia normal Upper Extremities: normal ROM Lower Extremities: no edema, other (left lower extremity with bandage over inner thigh, no surrounding erythema or tenderness. R toe with cap refill < 3sec. L toe cap refill 5-6 seconds) Pulses: dorsalis pedis (R) (1+), dorsalis pedis (L) (0), posterior tibial (R) ( +1), posterior tibial (L) (0) Neuro: alert, oriented x 3, normal motor exam, normal speech Psychiatric: flat affect Laboratory Results Last 24 Hours Test 12/15/16 06:25 12/15/16 10:47 12/15/16 11:29 12/15/16 13:08 Bedside Glucose 130 mg/dl 121 mg/dl Bedside Hemoglobin 12.6 g/dl Bedside Hematocrit 37 % Bedside Sodium 132 mEq/L Bedside Potassium 5.4 mEq/L Bedside Chloride 98 mEq/L Bedside Total CO2 27 mEq/l Anion Gap 15.0 mmol/L Bedside Blood Urea Nitrogen 29 mg/dl Bedside Creatinine 1.0 mg/dl Bedside Glucose (other) 129 mg/dl Bedside Ionized Calcium (Alondra) 1.15 mmol/l Kaolin Activated Coagulation Time 136 SECONDS Test 12/15/16 13:34 White Blood Count 17.05 K/uL Red Blood Count 3.98 M/uL Hemoglobin 12.1 g/dL Hematocrit 36.2 % Mean Corpuscular Volume 91.0 fL Mean Corpuscular Hemoglobin 30.4 pg Mean Corpuscular Hemoglobin Concent 33.4 g/dl Platelet Count 199 K/uL Mean Platelet Volume 9.6 fL Neutrophils (%) (Auto) 77.5 % Lymphocytes (%) (Auto) 12.8 % Monocytes (%) (Auto) 9.0 % Eosinophils (%) (Auto) 0.2 % Basophils (%) (Auto) 0.1 % Neutrophils # (Auto) 13.22 K/uL Lymphocytes # (Auto) 2.18 K/uL Monocytes # (Auto) 1.54 K/uL Eosinophils # (Auto) 0.04 K/uL Basophils # (Auto) 0.01 K/uL RDW Standard Deviation 40.8 fL RDW Coefficient of Variation 12.3 % Immature Granulocyte % (Auto) 0.4 % Immature Granulocyte # (Auto) 0.06 K/uL Hypersegmented Polys 1+ Echinocytes 1+ Assessment & Plan 86 year old male with known vascular disease was admitted to the ICU s/p left fem-pop bypass and popliteal artery stent placement CARDIAC Left fem pop bypass with popliteal stent placement Percocet and Morphine PRN for pain post op Started on ashley post op to maintain systolic greater than 100 Coronary artery disease status 4 vessel bypass graft in 2005 Continue aspirin and plavix Echo done in 2014 with LVEF of 65% PASP 50mm/hg Carotid doppler 60-69% stenosis on left internal carotid and normal flow on right Left parietal CVA in 2015 without any residual deficit Hypertension - continue with amlodipine, lisinopril Continue simvastatin and metoprolol NEURO Cam - AAAOx3 Bilateral hearing aids in place RESPIRATORY significant smoking history 100 pack year + not on any inhalers and never been diagnosed with COPD Currently 96% O2 on 2L nasal cannula GI Heart Healthy diet Zofran PRN for nausea Had a bm before surgery Monitor for constipation post op with use of pain medication Pantoprazole IV for GI prophylaxis ID [id number] 17 post op Patient has remained afebrile Cefazolin q8 for surgery prophylaxis ENDO Diabetes mellitus type 2 On insulin at home On lantus 35 units QAM with ISS Regular BSG monitoring Continue synthroid for hypothyroidism Bhandari catheter placed post op Monitor I/O's Has BPH and on Tamsulosin RENAL creatinine baseline 1.0, continue to monitor continue to monitor electrolytes IV fluids 125mls/hr dextrose/sodium HEMATOLOGY Hgb 12.1 and baseline of 14 600ml blood loss during surgery repeat H&H at 6pm DVT prophylaxis Lovenox subq 30units FULL CODE Resident Physician Supervision Note: Dr. Gautam was resident physician during care of patient. I separately evaluated patient and did history and exam. I discussed the case with the resident and generally agree with the findings and plan. No complaint during my evaluation, later patient had elevated blood sugars necessitating change from D5NS to Normosol maintenance fluid. Continuing low- dose phenylephrine for hypotension, this should be secondary to anesthetic effect and anticipate prompt resolution Documented By: Ean Villavicencio DO
[2016-12-15 18:06] LABS: HEMATOCRIT 34.1 % (42-52)
[2016-12-15] MEDS ORDERED: NURSING VERBAL MED ORDER ONE (18:15)
[2016-12-15] MEDS: OXYCODONE/ACETAMINOPHEN 5-325 TAB PO PRN (19:43)
[2016-12-15] MEDS: BIMATOPROST 0.01% OP SOLN 2.5 ML BTL OPB SCH (20:56)
[2016-12-15] MEDS: ENOXAPARIN 30 MG/0.3 ML SYR SQ SCH (20:56)
[2016-12-15] MEDS: DORZOLAMIDE/TIMOLOL 22.3/6.8MG/ML 10 ML BTL OPB SCH (20:56)
[2016-12-15] MEDS: METOPROLOL TARTRATE 25 MG TAB PO SCH (20:58)
[2016-12-15] MEDS: LISINOPRIL 20 MG TAB PO SCH (20:58)
[2016-12-15] MEDS ORDERED: INSULIN GLARGINE SOLOSTAR 100 UNITS/ML 3 ML PEN SC SCH (21:00)
[2016-12-15] MEDS ORDERED: NON-FORMULARY MEDICATION (Omeprazole (Prilosec) 20 MG) PO SCH (21:00)
[2016-12-15] MEDS: MoRPHine SULFATE 2 MG/ML CARP IV PRN (22:18)
[2016-12-16] VITALS (21 sets, daily range): BP systolic 94–164; BP diastolic 44–70; PULSE 66–99; TEMP 36.7–37.6; O2SAT 88–99
[2016-12-16] MEDS: CEFAZOLIN IV 1,000 MG in DEXTROSE 5% 50ML 50 ML IV SCH (00:10)
[2016-12-16] MEDS ORDERED: INSULIN IV INFUSION PROTOCOL STA (00:11)
[2016-12-16] MEDS ORDERED: MODERATE STRESS LEVEL ONE (00:15)
[2016-12-16] MEDS ORDERED: INSULIN PROTOCOL GOAL RANGE ONE (00:15)
[2016-12-16] MEDS ORDERED: INSULIN HUMAN REGULAR IV BOLUS 2 UNIT in SYRINGE 0 ML IV SCH (00:30)
[2016-12-16] MEDS ORDERED: INSULIN REGULAR 250 UNITS in SODIUM CHLORIDE 0.9% 250ML 250 ML IV SCH (00:30)
--- NOTE | 2016-12-16 02:18 | OPERATIVE REPORT ---
DATE OF OPERATION: 12/15/2016 PREOPERATIVE DIAGNOSIS: Left lower extremity critical limb ischemia. POSTOPERATIVE DIAGNOSIS: Same. PROCEDURES: 1. Left above knee popliteal artery cutdown. 2. Left lower extremity angiogram. 3. Left fem to above knee popliteal bypass with 6 mm hybrid [place] graft. 4. Placement of 6 x 10 Viabahn stent in the popliteal artery. 5. Balloon angioplasty with 6 x 80 balloon. 6. Exploration of left peroneal artery. SURGEON: Dr. Barber Valenzuela. MILL SUPERVISOR: Dr. Kaylyn Barth. ANESTHESIA: General endotracheal anesthesia. FLUIDS: 1800 mL of crystalloid. URINE: 550. ESTIMATED BLOOD LOSS: 600 mL. CONDITION: Extubated to PACU. COMPLICATIONS: None apparent. INDICATIONS: Mr. Slaughter is an 86-year-old male with a left lower extremity rest pain who underwent previous attempt at left lower extremity endovascular intervention, however he had an occlusion of his SFA that was unable to be crossed. Due to this he was brought back for attempt at retrograde access and bypass. PROCEDURE: The patient was brought into the operative suite. He was prepped and draped in the usual fashion. A timeout occurred. The incision was made in the thigh above the knee approximately 2 cm along the border of the sartorius. This was extended down the anterior border of the sartorius. This was carried down. The sartorius was retracted posteriorly. The popliteal artery was identified and dissected out. The popliteal artery was accessed with the access needle. A wire was advanced and a 5-[place] sheath was placed. A wire was tried to cross the distal SFA occlusion however this was unsuccessful. The sheath was then exchanged for 6 x 45 destination sheath. Again, the occlusion was attempted to be crossed with a Glidewire then Glidewire and Quick-Cross and then a ____ wire; however, fortunately, this was unable to be obtained; therefore, an arteriotomy was made in the popliteal artery and a 6 hybrid [place] graft distal end was placed in the popliteal. Proximal popliteal artery on the proximal side of the arteriotomy was ligated. An incision was made over the femoral artery. The SFA was identified and the [place] hybrid graft was tunneled subsartorially to the femoral artery. This was clamped. The femoral artery was clamped and a arteriotomy was made. The graft was sewn in an end-to-side fashion with CV5 suture. Prior to the last sutures placed the graft was de-aired and flushed. An angiogram was obtained showing distal occlusion of the popliteal artery just distal to our bypass graft which fed multiple collaterals. An incision was made. Our attention was then turned to the lower leg. An incision was made a couple of centimeters beneath the tibia. This was deepened. The PT and peroneal artery were identified. The peroneal artery was found to be diffusely calcified and not amenable to bypass. At this point it was felt that we should not attempt to bypass to the peroneal artery. This incision was then closed. The patient at this point had a peroneal signal as well as collateral signals. Completion angiogram showed filling to the angle through collaterals to the peroneal. Hemostasis was obtained. All incisions were closed and the patient was awakened and transferred to the PACU. Dr. Barber Valenzuela was present for the entirety of this case. I, Dr. Valenzuela was present and scrubbed for the entire procedure. I attest to the content of the Intraoperative Record and any orders documented therein. Any exceptions are noted below. WINNIE
[2016-12-16] MEDS: LEVOTHYROXINE 175 MCG TAB PO SCH (05:47)
[2016-12-16 05:51] LABS: BASO % 0.1 %; BASO ABS # 0.02 K/uL (0-0.2); COMPLETE YES; EOS % 0.1 %; IG% 0.4 %; LYMPH % 7.9 %; LYMPH ABS # 1.22 K/uL (1.2-3.4); MEAN CELL VOLUME 89.6 fL (80-100); MEAN CORPUSCULAR HEMOGLOBIN 30.8 pg (25-34); MEAN CORPUSCULAR HGB CONC 34.4 g/dl (32-36); MONO % 13.7 %; NEUT % 77.8 %; PLATELET COUNT 199 K/uL (130-400); RED BLOOD COUNT 3.57 M/uL (4.7-6.1); WHITE BLOOD COUNT 15.41 K/uL (4.8-10.8)
[2016-12-16 06:21] LABS: BUN/CREATININE RATIO 21.2 (10-20); CALCIUM 8.2 mg/dl (8.5-10.1); CREATININE 1.5 mg/dl (0.60-1.40); POTASSIUM 4.4 mmol/L (3.5-5.1)
[2016-12-16 07:22] LABS: ESTIMATED AVERAGE GLUCOSE 126 mg/dl; HA1C FLAG Normal (Normal)
[2016-12-16] MEDS ORDERED: INSULIN ASPART 100 UNITS/ML 3 ML PEN SC SCH (08:00)
[2016-12-16] MEDS: DORZOLAMIDE/TIMOLOL 22.3/6.8MG/ML 10 ML BTL OPB SCH ×2 (08:06→20:47)
[2016-12-16] MEDS: TAMSULOSIN HCL 0.4 MG CAP PO SCH (08:07)
[2016-12-16] MEDS: CLOPIDOGREL BISULFATE 75 MG TAB PO SCH (08:07)
[2016-12-16] MEDS: FERROUS SULFATE 325 MG TAB PO SCH (08:08)
[2016-12-16] MEDS: ASPIRIN 81 MG ECTAB PO SCH (08:08)
[2016-12-16] MEDS: SIMVASTATIN 80 MG TAB PO SCH (08:08)
[2016-12-16] MEDS: ENOXAPARIN 30 MG/0.3 ML SYR SQ SCH ×2 (08:09→20:54)
[2016-12-16] MEDS ORDERED: LACTATED RINGER'S 1000ML 500 ML IV ONE (08:15)
--- NOTE | 2016-12-16 08:15 | Critical Care Progress Note ---
Critical Care Progress Note Date of Service Dec 16, 2016. ICU Day ICU Day Number: [address] Villavicencio Subjective States he feels so-so, mild pain and incisional sites, moving bowels yesterday doesn't feel as if he needs to move his bowels today, not hungry this morning. Objective Gen. alert and oriented 3 no acute distress, sitting upright in chair Eyes pupils equal round reactive Head normocephalic/atraumatic Abdomen soft nontender nondistended no hepatosplenomegaly Extremities: Warm perfused normal capillary refill Current SOFA Score SOFA Score Response (Comments) Value SaO2 / FIO2 221 - 301 1 Platelets (x10) > 150 0 Bilirubin (mg/dL) < 1.2 0 Feli Coma Score 15 0 Level of Hypotension No Hypotension 0 Creatinine (mg/dL) 1.2 - 1.9 1 Total 2 Assessment & Plan 86 year old male with known vascular disease was admitted to the ICU s/p left fem-pop bypass and popliteal artery stent placement CARDIAC Left fem pop bypass with popliteal stent placement Hypotension: Xavier-Synephrine discontinued this morning Coronary artery disease status 4 vessel bypass graft in 2005 Continue aspirin and plavix Echo done in 2014 with LVEF of 65% PASP 50mm/hg Carotid doppler 60-69% stenosis on left internal carotid and normal flow on right 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 Hypertension - continue with amlodipine, lisinopril Continue simvastatin and metoprolol NEURO Cam - AAAOx3 Bilateral hearing aids in place RESPIRATORY significant smoking history 100 pack year + not on any inhalers and never been diagnosed with COPD Currently 96% O2 on 2L nasal cannula GI Heart Healthy diet Zofran PRN for nausea Had a bm before surgery Monitor for constipation post op with use of pain medication Pantoprazole IV for GI prophylaxis ID WCC 17 post op Patient has remained afebrile Cefazolin q8 for surgery prophylaxis ENDO Diabetes mellitus type 2 Hyperglycemia Elevated blood sugars necessitated insulin infusion, starting regular Lantus dosing this morning and anticipate prompted discontinuation of insulin drip On insulin at home On lantus 35 units QAM with ISS Regular BSG monitoring Continue synthroid for hypothyroidism Bhandari catheter placed post op Monitor I/O's Has BPH and on Tamsulosin DC Bhandari RENAL Mild postoperative MICHELLE Continue aggressive hydration creatinine baseline 1.0, continue to monitor continue to monitor electrolytes IV fluids 125mls/hr dextrose/sodium HEMATOLOGY Hgb 12.1 and baseline of 14 600ml blood loss during surgery repeat H&H at 6pm DVT prophylaxis Lovenox subq 30units FULL CODE I have personally spent 35 minutes of critical care time in the direct management of this patient. This is a life/limb threatening event. This includes time spent evaluating patient, direct bedside care, chart review, placing orders, interpretation of diagnostic studies, discussion with consultants, patient, and family members, as well as other required patient management activities. This time is exclusive of all separately billable procedures, and teaching time and separate from and in addition to any other critical care service time. Consults & Procedures Consultants: ELVIA Procedures: Femoropopliteal bypass 12/15/2016 by vascular surgery Data Medications: Current Inpatient Medications Medications (Trade) Dose Ordered Sig/[place] Route Start Time Stop Time Status Last Admin Dose Admin Acetaminophen (Tylenol Tab) 650 mg Q4H PRN PO 12/15/16 12:15 01/14/17 12:14 Oxycodone/ Acetaminophen (Percocet 5-325mg Tab) `1-2 TABS FOR MODER... Q4H PRN PO 12/15/16 12:15 12/29/16 12:14 12/15/16 19:43 1 TAB Morphine Sulfate (MoRPHine SULFATE INJ) 4 mg Q2H PRN IV 12/15/16 12:15 12/29/16 12:14 Ondansetron HCl (Zofran Inj) 4 mg Q6H PRN IV 12/15/16 12:15 01/14/17 12:14 12/15/16 15:02 4 MG Pantoprazole Sodium 40 mg/ Syringe 10 ml @ 5 mls/min DAILY@11 IV 12/16/16 11:00 01/15/17 10:59 Enoxaparin Sodium (Lovenox Inj) 30 mg Q12 SQ 12/15/16 20:00 01/14/17 19:59 12/15/16 20:56 30 MG Aspirin (Ecotrin Tab) 81 mg QAM PO 12/16/16 09:00 01/15/17 08:59 Clopidogrel Bisulfate (plAVix TAB) 75 mg QAM PO 12/16/16 09:00 01/15/17 08:59 Dorzolamide/ Timolol (Cosopt Op Soln) 1 drops BID OPB 12/15/16 21:00 01/14/17 20:59 12/15/16 20:56 1 DROPS Levothyroxine Sodium (Synthroid Tab) 175 mcg DAILYBB PO 12/16/16 06:00 01/15/17 05:59 12/16/16 05:47 175 MCG Lisinopril (Zestril Tab) 20 mg BID PO 12/15/16 21:00 01/14/17 20:59 Lorazepam (Ativan Tab) 0.5 mg BID PRN PO 12/15/16 12:15 01/14/17 12:14 Metoprolol Tartrate (Lopressor Tab) 25 mg BID PO 12/15/16 21:00 01/14/17 20:59 Simvastatin (Zocor Tab) 80 mg QAM PO 12/16/16 09:00 01/15/17 08:59 Tamsulosin HCl (Flomax Cap) 0.4 mg QAM PO 12/16/16 09:00 01/15/17 08:59 Triamterene/HCTZ (Dyazide 37.5/25 Mg Cap) 1 cap QAM PO 12/16/16 09:00 01/15/17 08:59 Amlodipine Besylate (Norvasc Tab) 10 mg DAILY PO 12/16/16 09:00 01/15/17 08:59 Bimatoprost (Lumigan 0.01%) 1 drops HS OPB 12/15/16 21:00 01/14/17 20:59 12/15/16 20:56 1 DROPS Ferrous Sulfate (Feosol Tab) 325 mg QAM PO 12/16/16 09:00 01/15/17 08:59 Glucose (Glucose 40% Gel) 15-30 GRAMS 15 GRAMS... UD PRN PO 12/15/16 12:15 01/14/17 12:14 Glucose (Glucose Chew Tab) 4-8 Tablets 4 Tabl... UD PRN PO 12/15/16 12:15 01/14/17 12:14 Dextrose (Dextrose 50% 50ML Syringe) 25-50ML OF 50% DW IV FOR... UD PRN IV 12/15/16 12:15 01/14/17 12:14 Glucagon (Glucagon Inj) 1 mg UD PRN SQ 12/15/16 12:15 01/14/17 12:14 Morphine Sulfate (MoRPHine SULFATE INJ) 2 mg Q2H PRN IV 12/15/16 13:45 12/29/16 13:44 12/15/16 22:18 2 MG Phenylephrine HCl 20 mg/Dextrose 500 ml @ 0 mls/hr Q0M PRN IV 12/15/16 15:30 01/14/17 15:29 12/15/16 15:43 57.8 MLS/HR Insulin Aspart (novoLOG ASPART) SLIDING SCALE [facility] 12/16/16 08:00 01/15/17 07:59 Insulin Human Regular 250 units/ Sodium Chloride 252.5 ml @ 0 mls/hr DAILY@1130 IV 12/16/16 00:30 01/15/17 00:29 12/16/16 00:37 1.9 MLS/HR Vital Signs: Date Time Temp Pulse Resp B/P (MAP) Pulse Ox O2 Delivery O2 Flow Rate FiO2 12/16/16 06:31 86 28 120/44 (69) 88 Nasal Cannula 2.0 12/16/16 06:02 80 32 112/51 (71) 90 Nasal Cannula 2.0 12/16/16 05:31 79 29 104/59 (74) 92 Nasal Cannula 2.0 12/16/16 05:01 66 24 107/52 (70) 95 Nasal Cannula 2.0 12/16/16 04:12 95 Nasal Cannula 2.0 12/16/16 04:01 81 31 114/55 (74) 89 Nasal Cannula 2.0 12/16/16 03:31 76 27 118/50 (72) 90 Nasal Cannula 2.0 12/16/16 03:01 80 10 112/57 (75) 91 Nasal Cannula 2.0 12/16/16 02:31 75 19 116/64 (81) 93 Nasal Cannula 2.0 12/16/16 02:01 81 30 112/56 (74) 92 Nasal Cannula 2.0 12/16/16 01:31 80 26 113/56 (75) 93 Nasal Cannula 2.0 12/16/16 01:01 76 31 104/53 (70) 94 Nasal Cannula 2.0 12/16/16 00:31 75 16 114/62 (79) 95 Nasal Cannula 2.0 12/16/16 00:10 95 Nasal Cannula 2.0 12/16/16 00:01 36.7 78 27 107/55 (72) 96 Nasal Cannula 2.0 12/15/16 23:31 78 30 113/54 (73) 96 Nasal Cannula 2.0 12/15/16 23:01 79 21 111/62 (78) 95 Nasal Cannula 2.0 12/15/16 22:41 85 24 115/54 (74) 88 Nasal Cannula 2.0 12/15/16 22:01 73 28 136/54 (81) 97 Nasal Cannula 2.0 12/15/16 21:01 84 27 103/58 (73) 99 Nasal Cannula 2.0 12/15/16 20:31 80 28 103/45 (64) 94 Nasal Cannula 2.0 87 12/15/16 20:16 84 24 115/61 (79) 90 Nasal Cannula 2.0 87 12/15/16 20:06 93 Nasal Cannula 2.0 12/15/16 20:01 36.8 82 21 100/61 (74) 92 Nasal Cannula 2.0 87 12/15/16 19:46 80 22 111/54 (73) 93 Nasal Cannula 2.0 87 12/15/16 19:31 82 20 106/45 (65) 95 Nasal Cannula 2.0 87 12/15/16 19:16 83 22 102/50 (67) 95 Nasal Cannula 2.0 87 12/15/16 19:01 81 25 110/64 (79) 99 Nasal Cannula 2.0 87 12/15/16 17:16 80 24 107/44 (65) 96 Nasal Cannula 2.0 12/15/16 17:01 68 22 96/52 (67) 97 Nasal Cannula 2.0 12/15/16 16:46 81 24 89/48 (62) 97 Nasal Cannula 2.0 12/15/16 16:31 82 21 94/49 (64) 97 Nasal Cannula 2.0 12/15/16 16:16 66 26 98/34 (55) 98 Nasal Cannula 2.0 12/15/16 16:00 36.8 83 19 95/48 (64) 96 Nasal Cannula 2.0 12/15/16 16:00 98 Nasal Cannula 3.0 12/15/16 15:46 73 22 101/57 (72) 97 Nasal Cannula 2.0 12/15/16 15:31 79 24 90/45 (60) 96 Nasal Cannula 2.0 12/15/16 15:16 69 16 91/44 (60) 95 Nasal Cannula 2.0 12/15/16 15:00 66 27 81/44 (56) 95 Nasal Cannula 2.0 12/15/16 14:34 68 20 81/43 (56) 96 Nasal Cannula 2.0 12/15/16 14:30 78 26 72/45 (54) 96 Nasal Cannula 2.0 12/15/16 14:23 80 22 93/42 (59) 95 Nasal Cannula 2.0 12/15/16 13:55 82 20 94/47 98 Nasal Cannula 3 12/15/16 13:40 36.7 81 20 94/47 98 Nasal Cannula 3 12/15/16 13:30 76 20 98/51 98 Nasal Cannula 3 12/15/16 13:20 78 20 91/51 98 Nasal Cannula 3 12/15/16 13:10 76 22 100/49 99 Oxymask 10 12/15/16 13:00 79 20 97/49 99 Oxymask 10 12/15/16 12:50 36.2 76 18 92/67 99 Oxymask 10 Laboratory Results: Last 24 Hours Test 12/15/16 10:47 12/15/16 11:29 12/15/16 13:08 12/15/16 13:34 Bedside Hemoglobin 12.6 g/dl Bedside Hematocrit 37 % Bedside Sodium 132 mEq/L Bedside Potassium 5.4 mEq/L Bedside Chloride 98 mEq/L Bedside Total CO2 27 mEq/l Anion Gap 15.0 mmol/L Bedside Blood Urea Nitrogen 29 mg/dl Bedside Creatinine 1.0 mg/dl Bedside Glucose (other) 129 mg/dl Bedside Ionized Calcium (Alondra) 1.15 mmol/l Kaolin Activated Coagulation Time 136 SECONDS Bedside Glucose 121 mg/dl White Blood Count 17.05 K/uL Red Blood Count 3.98 M/uL Hemoglobin 12.1 g/dL Hematocrit 36.2 % Mean Corpuscular Volume 91.0 fL Mean Corpuscular Hemoglobin 30.4 pg Mean Corpuscular Hemoglobin Concent 33.4 g/dl Platelet Count 199 K/uL Mean Platelet Volume 9.6 fL Neutrophils (%) (Auto) 77.5 % Lymphocytes (%) (Auto) 12.8 % Monocytes (%) (Auto) 9.0 % Eosinophils (%) (Auto) 0.2 % Basophils (%) (Auto) 0.1 % Neutrophils # (Auto) 13.22 K/uL Lymphocytes # (Auto) 2.18 K/uL Monocytes # (Auto) 1.54 K/uL Eosinophils # (Auto) 0.04 K/uL Basophils # (Auto) 0.01 K/uL RDW Standard Deviation 40.8 fL RDW Coefficient of Variation 12.3 % Immature Granulocyte % (Auto) 0.4 % Immature Granulocyte # (Auto) 0.06 K/uL Hypersegmented Polys 1+ Echinocytes 1+ Test 12/15/16 15:48 12/15/16 18:00 12/15/16 21:00 12/15/16 23:30 Bedside Glucose 179 mg/dl 290 mg/dl 208 mg/dl Hemoglobin 11.8 g/dL Hematocrit 34.1 % Test 12/16/16 01:39 12/16/16 02:41 12/16/16 03:41 12/16/16 04:43 Bedside Glucose 162 mg/dl 157 mg/dl 147 mg/dl 147 mg/dl Test 12/16/16 05:23 12/16/16 06:36 White Blood Count 15.41 K/uL Red Blood Count 3.57 M/uL Hemoglobin 11.0 g/dL Hematocrit 32.0 % Mean Corpuscular Volume 89.6 fL Mean Corpuscular Hemoglobin 30.8 pg Mean Corpuscular Hemoglobin Concent 34.4 g/dl Platelet Count 199 K/uL Mean Platelet Volume 10.0 fL Neutrophils (%) (Auto) 77.8 % Lymphocytes (%) (Auto) 7.9 % Monocytes (%) (Auto) 13.7 % Eosinophils (%) (Auto) 0.1 % Basophils (%) (Auto) 0.1 % Neutrophils # (Auto) 11.99 K/uL Lymphocytes # (Auto) 1.22 K/uL Monocytes # (Auto) 2.11 K/uL Eosinophils # (Auto) 0.01 K/uL Basophils # (Auto) 0.02 K/uL RDW Standard Deviation 41.1 fL RDW Coefficient of Variation 12.6 % Immature Granulocyte % (Auto) 0.4 % Immature Granulocyte # (Auto) 0.06 K/uL Sodium Level 132 mmol/L Potassium Level 4.4 mmol/L Chloride Level 97 mmol/L Carbon Dioxide Level 28 mmol/L Anion Gap 7.0 mmol/L Blood Urea Nitrogen 32 mg/dl Creatinine 1.50 mg/dl Est Creatinine Clear Calc Drug Dose 33.8 ml/min Estimated GFR () 48.2 Estimated GFR (Non- 41.6 BUN/Creatinine Ratio 21.2 Random Glucose 146 mg/dl Estimated Average Glucose 126 mg/dl Hemoglobin A1c 6.0 % Calcium Level 8.2 mg/dl Bedside Glucose 146 mg/dl
--- NOTE | 2016-12-16 08:32 | Progress Note ---
Progress Note Date of Service: Dec 16, 2016. Subjective Claims foot feeling better Problem List Medical Problems: (1) Bradycardia Status: Acute (2) Dizziness Status: Acute (3) Palpitations Status: Acute (4) Right inguinal hernia Status: Acute Objective Vital Signs Vital Signs Past 12 Hours Date Time Temp Pulse Resp B/P (MAP) Pulse Ox O2 Delivery O2 Flow Rate FiO2 12/16/16 06:31 86 28 120/44 (69) 88 Nasal Cannula 2.0 12/16/16 06:02 80 32 112/51 (71) 90 Nasal Cannula 2.0 12/16/16 05:31 79 29 104/59 (74) 92 Nasal Cannula 2.0 12/16/16 05:01 66 24 107/52 (70) 95 Nasal Cannula 2.0 12/16/16 04:12 95 Nasal Cannula 2.0 12/16/16 04:01 81 31 114/55 (74) 89 Nasal Cannula 2.0 12/16/16 03:31 76 27 118/50 (72) 90 Nasal Cannula 2.0 12/16/16 03:01 80 10 112/57 (75) 91 Nasal Cannula 2.0 12/16/16 02:31 75 19 116/64 (81) 93 Nasal Cannula 2.0 12/16/16 02:01 81 30 112/56 (74) 92 Nasal Cannula 2.0 12/16/16 01:31 80 26 113/56 (75) 93 Nasal Cannula 2.0 12/16/16 01:01 76 31 104/53 (70) 94 Nasal Cannula 2.0 12/16/16 00:31 75 16 114/62 (79) 95 Nasal Cannula 2.0 12/16/16 00:10 95 Nasal Cannula 2.0 12/16/16 00:01 36.7 78 27 107/55 (72) 96 Nasal Cannula 2.0 12/15/16 23:31 78 30 113/54 (73) 96 Nasal Cannula 2.0 12/15/16 23:01 79 21 111/62 (78) 95 Nasal Cannula 2.0 12/15/16 22:41 85 24 115/54 (74) 88 Nasal Cannula 2.0 12/15/16 22:01 73 28 136/54 (81) 97 Nasal Cannula 2.0 12/15/16 21:01 84 27 103/58 (73) 99 Nasal Cannula 2.0 12/15/16 20:31 80 28 103/45 (64) 94 Nasal Cannula 2.0 87 Exam Awake Alert VSS Afebrile BP slightly low but with adequate MAP and no symptoms Dressing intact Foot warm Laboratory and Microbiology Results Past 24 Hours Test 12/15/16 10:47 12/15/16 11:29 12/15/16 13:08 12/15/16 13:34 Range/Units Bedside Hemoglobin 12.6 14.0-18.0 g/dl Bedside Hematocrit 37 42-52 % Bedside Sodium 132 135-144 mEq/L Bedside Potassium 5.4 3.3-5.0 mEq/L Bedside Chloride 98 101-112 mEq/L Bedside Total CO2 27 24-31 mEq/l Anion Gap 15.0 16-25 mmol/L Bedside Blood Urea Nitrogen 29 7-18 mg/dl Bedside Creatinine 1.0 0.6-1.3 mg/dl Bedside Glucose (other) 129 70-99 mg/dl Bedside Ionized Calcium (Alondra) 1.15 1.12-1.32 mmol/l Kaolin Activated Coagulation Time 136 94-140 SECONDS Bedside Glucose 121 70-99 mg/dl White Blood Count 17.05 4.8-10.8 K/uL Red Blood Count 3.98 4.7-6.1 M/uL Hemoglobin 12.1 14.0-18.0 g/dL Hematocrit 36.2 42-52 % Mean Corpuscular Volume 91.0 80-100 fL Mean Corpuscular Hemoglobin 30.4 25-34 pg Mean Corpuscular Hemoglobin Concent 33.4 32-36 g/dl Platelet Count 199 130-400 K/uL Mean Platelet Volume 9.6 7.4-10.4 fL Neutrophils (%) (Auto) 77.5 % Lymphocytes (%) (Auto) 12.8 % Monocytes (%) (Auto) 9.0 % Eosinophils (%) (Auto) 0.2 % Basophils (%) (Auto) 0.1 % Neutrophils # (Auto) 13.22 1.4-6.5 K/uL Lymphocytes # (Auto) 2.18 1.2-3.4 K/uL Monocytes # (Auto) 1.54 0.11-0.59 K/uL Eosinophils # (Auto) 0.04 0-0.5 K/uL Basophils # (Auto) 0.01 0-0.2 K/uL RDW Standard Deviation 40.8 36.4-46.3 fL RDW Coefficient of Variation 12.3 11.5-14.5 % Immature Granulocyte % (Auto) 0.4 % Immature Granulocyte # (Auto) 0.06 0.00-0.02 K/uL Hypersegmented Polys 1+ Echinocytes 1+ Test 12/15/16 15:48 12/15/16 18:00 12/15/16 21:00 12/15/16 23:30 Range/Units Bedside Glucose 179 290 208 70-99 mg/dl Hemoglobin 11.8 14.0-18.0 g/dL Hematocrit 34.1 42-52 % Test 12/16/16 01:39 12/16/16 02:41 12/16/16 03:41 12/16/16 04:43 Range/Units Bedside Glucose 162 157 147 147 70-99 mg/dl Test 12/16/16 05:23 12/16/16 06:36 Range/Units White Blood Count 15.41 4.8-10.8 K/uL Red Blood Count 3.57 4.7-6.1 M/uL Hemoglobin 11.0 14.0-18.0 g/dL Hematocrit 32.0 42-52 % Mean Corpuscular Volume 89.6 80-100 fL Mean Corpuscular Hemoglobin 30.8 25-34 pg Mean Corpuscular Hemoglobin Concent 34.4 32-36 g/dl Platelet Count 199 130-400 K/uL Mean Platelet Volume 10.0 7.4-10.4 fL Neutrophils (%) (Auto) 77.8 % Lymphocytes (%) (Auto) 7.9 % Monocytes (%) (Auto) 13.7 % Eosinophils (%) (Auto) 0.1 % Basophils (%) (Auto) 0.1 % Neutrophils # (Auto) 11.99 1.4-6.5 K/uL Lymphocytes # (Auto) 1.22 1.2-3.4 K/uL Monocytes # (Auto) 2.11 0.11-0.59 K/uL Eosinophils # (Auto) 0.01 0-0.5 K/uL Basophils # (Auto) 0.02 0-0.2 K/uL RDW Standard Deviation 41.1 36.4-46.3 fL RDW Coefficient of Variation 12.6 11.5-14.5 % Immature Granulocyte % (Auto) 0.4 % Immature Granulocyte # (Auto) 0.06 0.00-0.02 K/uL Sodium Level 132 136-145 mmol/L Potassium Level 4.4 3.5-5.1 mmol/L Chloride Level 97 98-107 mmol/L Carbon Dioxide Level 28 21-32 mmol/L Anion Gap 7.0 3-11 mmol/L Blood Urea Nitrogen 32 7-18 mg/dl Creatinine 1.50 0.60-1.40 mg/dl Est Creatinine Clear Calc Drug Dose 33.8 ml/min Estimated GFR () 48.2 Estimated GFR (Non- 41.6 BUN/Creatinine Ratio 21.2 10-20 Random Glucose 146 70-99 mg/dl Estimated Average Glucose 126 mg/dl Hemoglobin A1c 6.0 4.5-5.6 % Calcium Level 8.2 8.5-10.1 mg/dl Bedside Glucose 146 70-99 mg/dl Microbiology Results 12/15/16 MRSA DNA Surveillance Screen - Final, Complete Specimen Negative for MRSA by DNA Probe Imp: Post left fem pop bypass Plan: Doing well Will transfer to telemetry Holding his antihypertensives this am Increase ambulation
[2016-12-16] MEDS ORDERED: INSULIN GLARGINE SOLOSTAR 100 UNITS/ML 3 ML PEN SC SCH (09:00)
[2016-12-16] MEDS: AMLODIPINE BESYLATE 5 MG TAB PO SCH (09:00)
[2016-12-16] MEDS ORDERED: TRIAMTERENE/HCTZ 37.5/25MG CAP PO SCH (09:00)
[2016-12-16] MEDS: METOPROLOL TARTRATE 25 MG TAB PO SCH ×2 (09:00→20:52)
[2016-12-16] MEDS: TRIAMTERENE/HCTZ 37.5/25MG CAP PO SCH (09:00)
[2016-12-16] MEDS: LISINOPRIL 20 MG TAB PO SCH ×2 (09:00→20:53)
[2016-12-16] MEDS: INSULIN GLARGINE SOLOSTAR 100 UNITS/ML 3 ML PEN SC SCH (09:11)
[2016-12-16] MEDS: OXYCODONE/ACETAMINOPHEN 5-325 TAB PO PRN ×2 (10:22→11:08)
[2016-12-16] MEDS: PANTOprazole INJ 40 MG in SYRINGE 0 ML IV SCH (10:23)
[2016-12-16] MEDS ORDERED: NURSING VERBAL MED ORDER ONE (13:15)
[2016-12-16] MEDS: INSULIN ASPART 100 UNITS/ML 3 ML PEN SC SCH ×2 (16:00→21:00)
[2016-12-16] MEDS: ONDANSETRON INJ 2 MG/ML 2 ML VIAL IV PRN (16:34)
[2016-12-16] MEDS: BIMATOPROST 0.01% OP SOLN 2.5 ML BTL OPB SCH (20:54)
[2016-12-17] VITALS (10 sets, daily range): BP systolic 92–127; BP diastolic 46–64; PULSE 77–86; TEMP 36.3–37.5; O2SAT 90–98
[2016-12-17] MEDS: LEVOTHYROXINE 175 MCG TAB PO SCH (03:59)
[2016-12-17] MEDS: ENOXAPARIN 30 MG/0.3 ML SYR SQ SCH ×2 (09:00→20:35)
[2016-12-17] MEDS: ASPIRIN 81 MG ECTAB PO SCH (09:05)
[2016-12-17] MEDS: SIMVASTATIN 80 MG TAB PO SCH (09:05)
[2016-12-17] MEDS: CLOPIDOGREL BISULFATE 75 MG TAB PO SCH (09:05)
[2016-12-17] MEDS: FERROUS SULFATE 325 MG TAB PO SCH (09:05)
[2016-12-17] MEDS: AMLODIPINE BESYLATE 5 MG TAB PO SCH (09:05)
[2016-12-17] MEDS: DORZOLAMIDE/TIMOLOL 22.3/6.8MG/ML 10 ML BTL OPB SCH ×2 (09:06→20:33)
[2016-12-17] MEDS: TRIAMTERENE/HCTZ 37.5/25MG CAP PO SCH (09:06)
[2016-12-17] MEDS: TAMSULOSIN HCL 0.4 MG CAP PO SCH (09:07)
[2016-12-17] MEDS: INSULIN GLARGINE SOLOSTAR 100 UNITS/ML 3 ML PEN SC SCH (09:09)
[2016-12-17] MEDS: INSULIN ASPART 100 UNITS/ML 3 ML PEN SC SCH ×4 (09:09→20:49)
--- NOTE | 2016-12-17 09:44 | Progress Note ---
Progress Note Date of Service: Dec 17, 2016. Subjective No complains. No foot pain Problem List Medical Problems: (1) Bradycardia Status: Acute (2) Dizziness Status: Acute (3) Palpitations Status: Acute (4) Right inguinal hernia Status: Acute Objective Vital Signs Vital Signs Past 12 Hours Date Time Temp Pulse Resp B/P (MAP) Pulse Ox O2 Delivery O2 Flow Rate FiO2 12/17/16 07:32 37.3 77 20 119/63 (81) 96 12/17/16 04:02 96 Nasal Cannula 2.0 12/17/16 04:00 36.7 77 20 127/64 (85) 98 Nasal Cannula 2.0 12/17/16 00:02 96 Nasal Cannula 2.0 12/17/16 00:00 37.0 80 18 106/55 (72) 94 Nasal Cannula 2.0 Exam VSS Afebrile Dressing intact. Small amount of serous sang drainage upper part of groin incision. Doppler heard in foot Laboratory and Microbiology Results Past 24 Hours Test 12/16/16 11:29 12/16/16 16:37 12/16/16 21:00 12/17/16 06:40 Range/Units Bedside Glucose 145 133 154 134 70-99 mg/dl Imp: Post left fem pop Plan: Doing well OOB today Start ambulation
[2016-12-17] MEDS: LISINOPRIL 20 MG TAB PO SCH ×2 (11:06→20:37)
[2016-12-17] MEDS: METOPROLOL TARTRATE 25 MG TAB PO SCH ×2 (11:06→20:39)
[2016-12-17] MEDS: OXYCODONE/ACETAMINOPHEN 5-325 TAB PO PRN (11:33)
[2016-12-17] MEDS: PANTOprazole INJ 40 MG in SYRINGE 0 ML IV SCH (11:38)
[2016-12-17] MEDS ORDERED: NURSING VERBAL MED ORDER ONE (20:00)
[2016-12-17] MEDS: SODIUM CHLORIDE 0.9% 1000ML 1,000 ML IV SCH (20:32)
[2016-12-17] MEDS: BIMATOPROST 0.01% OP SOLN 2.5 ML BTL OPB SCH (20:36)
[2016-12-18] VITALS (23 sets, daily range): BP systolic 73–140; BP diastolic 38–64; PULSE 66–92; TEMP 36.4–37.4; O2SAT 92–100
[2016-12-18] MEDS: SODIUM CHLORIDE 0.9% 1000ML 1,000 ML IV SCH ×2 (05:50→16:00)
[2016-12-18] MEDS: LEVOTHYROXINE 175 MCG TAB PO SCH (05:50)
[2016-12-18 07:58] LABS: HEMATOCRIT 22.1 % (42-52); MEAN CELL VOLUME 89.5 fL (80-100); MEAN CORPUSCULAR HEMOGLOBIN 30.8 pg (25-34); MEAN CORPUSCULAR HGB CONC 34.4 g/dl (32-36); MEAN PLATELET VOLUME 9.6 fL (7.4-10.4); PLATELET COUNT 170 K/uL (130-400); RED BLOOD COUNT 2.47 M/uL (4.7-6.1); WHITE BLOOD COUNT 13.61 K/uL (4.8-10.8)
[2016-12-18 08:17] LABS: BUN/CREATININE RATIO 32.7 (10-20); CALCIUM 8.2 mg/dl (8.5-10.1); CREATININE 0.74 mg/dl (0.60-1.40); MAGNESIUM 1.9 mg/dl (1.8-2.4)
[2016-12-18 08:19] LABS: ALB/GLOB RATIO 0.7 (0.9-2)
[2016-12-18] MEDS: INSULIN ASPART 100 UNITS/ML 3 ML PEN SC SCH ×4 (08:26→20:56)
[2016-12-18] MEDS ORDERED: NURSING VERBAL MED ORDER ONE ×3 (08:30→18:45)
--- NOTE | 2016-12-18 08:33 | Progress Note ---
Progress Note Date of Service: Dec 18, 2016. Subjective Lethargic today. Denies foot pain Problem List Medical Problems: (1) Bradycardia Status: Acute (2) Dizziness Status: Acute (3) Palpitations Status: Acute (4) Right inguinal hernia Status: Acute Objective Vital Signs Vital Signs Past 12 Hours Date Time Temp Pulse Resp B/P (MAP) Pulse Ox O2 Delivery O2 Flow Rate FiO2 12/18/16 07:34 37.4 66 20 108/61 (77) 97 Nasal Cannula 2.0 12/18/16 04:01 92 Nasal Cannula 2.0 12/18/16 03:53 36.7 76 20 108/53 (71) 93 Nasal Cannula 3.0 12/18/16 00:02 92 Nasal Cannula 2.0 12/18/16 00:00 36.6 72 20 104/48 (66) 93 Nasal Cannula 3.0 Exam Awake alert VSS Afebrile Not eating well Difficulty with hearing today. Appears somewhat confused. Not using devices appropriately according to daughter No focal neuro deficits Incision clean Good popliteal doppler Foot viable Bhandari in place with hematuria present. Laboratory and Microbiology Results Past 24 Hours Test 12/17/16 11:24 12/17/16 16:29 12/17/16 20:13 12/18/16 06:31 Range/Units Bedside Glucose 145 159 212 106 70-99 mg/dl Test 12/18/16 07:24 Range/Units White Blood Count 13.61 4.8-10.8 K/uL Red Blood Count 2.47 4.7-6.1 M/uL Hemoglobin 7.6 14.0-18.0 g/dL Hematocrit 22.1 42-52 % Mean Corpuscular Volume 89.5 80-100 fL Mean Corpuscular Hemoglobin 30.8 25-34 pg Mean Corpuscular Hemoglobin Concent 34.4 32-36 g/dl RDW Standard Deviation 40.7 36.4-46.3 fL RDW Coefficient of Variation 12.5 11.5-14.5 % Platelet Count 170 130-400 K/uL Mean Platelet Volume 9.6 7.4-10.4 fL Sodium Level 133 136-145 mmol/L Potassium Level 4.0 3.5-5.1 mmol/L Chloride Level 99 98-107 mmol/L Carbon Dioxide Level 29 21-32 mmol/L Anion Gap 5.0 3-11 mmol/L Blood Urea Nitrogen 24 7-18 mg/dl Creatinine 0.74 0.60-1.40 mg/dl Est Creatinine Clear Calc Drug Dose 68.5 ml/min Estimated GFR () 96.8 Estimated GFR (Non- 83.5 BUN/Creatinine Ratio 32.7 10-20 Random Glucose 97 70-99 mg/dl Calcium Level 8.2 8.5-10.1 mg/dl Magnesium Level 1.9 1.8-2.4 mg/dl Total Bilirubin 0.7 0.2-1 mg/dl Aspartate Amino Transf (AST/SGOT) 52 15-37 U/L Alanine Aminotransferase (ALT/SGPT) 14 12-78 U/L Alkaline Phosphatase 61 45-117 U/L Total Protein 5.4 6.4-8.2 gm/dl Albumin 2.2 3.4-5.0 gm/dl Globulin 3.2 2.5-4.0 gm/dl Albumin/Globulin Ratio 0.7 0.9-2 Imp: Post op fem pop Acute blood loss anemia from surgery Confusion Plan: Will transfuse 2 units today Add ensure with boost to diet Will consult neurology for evaluation of new mental status. MRI ordered
[2016-12-18] MEDS: DORZOLAMIDE/TIMOLOL 22.3/6.8MG/ML 10 ML BTL OPB SCH ×2 (08:43→20:11)
[2016-12-18] MEDS: FERROUS SULFATE 325 MG TAB PO SCH (08:44)
[2016-12-18] MEDS: SIMVASTATIN 80 MG TAB PO SCH (08:44)
[2016-12-18] MEDS: METOPROLOL TARTRATE 25 MG TAB PO SCH ×2 (08:44→20:10)
[2016-12-18] MEDS: ASPIRIN 81 MG ECTAB PO SCH (08:44)
[2016-12-18] MEDS: TAMSULOSIN HCL 0.4 MG CAP PO SCH (08:44)
[2016-12-18] MEDS: AMLODIPINE BESYLATE 5 MG TAB PO SCH (08:44)
[2016-12-18] MEDS: CLOPIDOGREL BISULFATE 75 MG TAB PO SCH (08:44)
[2016-12-18] MEDS: LISINOPRIL 20 MG TAB PO SCH ×2 (08:45→20:10)
[2016-12-18] MEDS: TRIAMTERENE/HCTZ 37.5/25MG CAP PO SCH (08:45)
[2016-12-18] MEDS: INSULIN GLARGINE SOLOSTAR 100 UNITS/ML 3 ML PEN SC SCH (08:46)
[2016-12-18] MEDS: ENOXAPARIN 30 MG/0.3 ML SYR SQ SCH (08:47)
[2016-12-18] MEDS ORDERED: BOOST VANILLA PO SCH ×2 (09:00)
[2016-12-18] MEDS: OXYCODONE/ACETAMINOPHEN 5-325 TAB PO PRN (09:39)
--- NOTE | 2016-12-18 10:43 | Neurology Consultation ---
Neurology Consultation Date of Consultation: Dec 18, 2016. Attending Physician: Barber Valenzuela M.D. Primary Care Physician: Wesley Dale M.D. Reason for Consultation: Change in mental status History of Present Illness Source: family, hospital records The patient is a 86-year-old male who is 3 days post left femoropopliteal bypass /stent who has been observed to exhibit confusion overnight. His daughter, who is at bedside this morning, as observed some unusual behavior where he will cone picker objects including his cell phone and the wired bedside remote control and attempt to utilize them in an apparent absent-minded state. His daughter indicates that she is a neuropsychologist and is concerned about the significance of this observed behavioral change in the context of his current illness and specifically questioned whether or not a frontal lobe process should be considered. At baseline, she believes he may have some very mild age- related cognitive dysfunction although he has never been diagnosed with dementia. 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 I reviewed the images as well as the radiologist's interpretation of this test. I also note that a CT of the head completed in September 2015 revealed a chronic left frontoparietal infarct. A carotid duplex at that time revealed a 50 -70% stenosis of the left internal carotid artery that was considered stable compared with the previous ultrasound done in January 2015. This patient's past medical history is notable for coronary artery disease, coronary artery bypass grafting, hypertension, diabetes mellitus, remote heavy tobacco use, quit in 1979, carotid stenosis, and peripheral vascular disease. Recent labs suggest that his hemoglobin has been dropping. He has recently been ordered a transfusion. He did have a very mild postoperative fever 2 days ago. He has a mild improving leukocytosis. His blood pressure has been fairly stable and tends to run a bit low. Electrocardiogram completed yesterday reveals sinus rhythm with some premature supraventricular complexes and PVCs. Currently, the patient is confused and is not really able to relay a reliable history of present illness. He does not participate very well with questions or neurological examination this morning. He had some difficulty identifying his daughter at bedside as well. Please see examination below for further details. Past Medical/Surgical History Medical Problems: (1) Bradycardia Status: Acute (2) Dizziness Status: Acute (3) Palpitations Status: Acute (4) Right inguinal hernia Status: Acute Family History There is a family history of colon cancer indicated in the medical record. However, family history is noncontributory light of this patient's advanced age and acute illness. Social History Drug Use: none Marital Status: Housing Status: lives alone Occupation Status: retired Allergies Coded Allergies: No Known Allergies (Unverified , 12/15/16) Current Inpatient Medications Current Inpatient Medications Medications (Trade) Dose Ordered Sig/[place] Route Start Time Stop Time Status Last Admin Dose Admin Acetaminophen (Tylenol Tab) 650 mg Q4H PRN PO 12/15/16 12:15 01/14/17 12:14 12/17/16 09:36 650 MG Oxycodone/ Acetaminophen (Percocet 5-325mg Tab) `1-2 TABS FOR MODER... Q4H PRN PO 12/15/16 12:15 12/29/16 12:14 12/18/16 09:39 1 TAB Morphine Sulfate (MoRPHine SULFATE INJ) 4 mg Q2H PRN IV 12/15/16 12:15 12/29/16 12:14 Ondansetron HCl (Zofran Inj) 4 mg Q6H PRN IV 12/15/16 12:15 01/14/17 12:14 12/16/16 16:34 4 MG Pantoprazole Sodium 40 mg/ Syringe 10 ml @ 5 mls/min DAILY@11 IV 12/16/16 11:00 01/15/17 10:59 12/17/16 11:38 5 MLS/MIN Enoxaparin Sodium (Lovenox Inj) 30 mg Q12 SQ 12/15/16 20:00 01/14/17 19:59 12/18/16 08:47 30 MG Aspirin (Ecotrin Tab) 81 mg QAM PO 12/16/16 09:00 01/15/17 08:59 12/18/16 08:44 81 MG Clopidogrel Bisulfate (plAVix TAB) 75 mg QAM PO 12/16/16 09:00 01/15/17 08:59 12/18/16 08:44 75 MG Dorzolamide/ Timolol (Cosopt Op Soln) 1 drops BID OPB 12/15/16 21:00 01/14/17 20:59 12/18/16 08:43 1 DROPS Levothyroxine Sodium (Synthroid Tab) 175 mcg DAILYBB PO 12/16/16 06:00 01/15/17 05:59 12/18/16 05:50 175 MCG Lisinopril (Zestril Tab) 20 mg BID PO 12/15/16 21:00 01/14/17 20:59 12/18/16 08:45 20 MG Lorazepam (Ativan Tab) 0.5 mg BID PRN PO 12/15/16 12:15 01/14/17 12:14 Metoprolol Tartrate (Lopressor Tab) 25 mg BID PO 12/15/16 21:00 01/14/17 20:59 12/18/16 08:44 25 MG Simvastatin (Zocor Tab) 80 mg QAM PO 12/16/16 09:00 01/15/17 08:59 12/18/16 08:44 80 MG Tamsulosin HCl (Flomax Cap) 0.4 mg QAM PO 12/16/16 09:00 01/15/17 08:59 12/18/16 08:44 0.4 MG Triamterene/HCTZ (Dyazide 37.5/25 Mg Cap) 1 cap QAM PO 12/16/16 09:00 01/15/17 08:59 12/18/16 08:45 1 CAP Amlodipine Besylate (Norvasc Tab) 10 mg DAILY PO 12/16/16 09:00 01/15/17 08:59 12/18/16 08:44 10 MG Bimatoprost (Lumigan 0.01%) 1 drops HS OPB 12/15/16 21:00 01/14/17 20:59 12/17/16 20:36 1 DROPS Ferrous Sulfate (Feosol Tab) 325 mg QAM PO 12/16/16 09:00 01/15/17 08:59 12/18/16 08:44 325 MG Glucose (Glucose 40% Gel) 15-30 GRAMS 15 GRAMS... UD PRN PO 12/15/16 12:15 01/14/17 12:14 Glucose (Glucose Chew Tab) 4-8 Tablets 4 Tabl... UD PRN PO 12/15/16 12:15 01/14/17 12:14 Dextrose (Dextrose 50% 50ML Syringe) 25-50ML OF 50% DW IV FOR... UD PRN IV 12/15/16 12:15 01/14/17 12:14 Glucagon (Glucagon Inj) 1 mg UD PRN SQ 12/15/16 12:15 01/14/17 12:14 Morphine Sulfate (MoRPHine SULFATE INJ) 2 mg Q2H PRN IV 12/15/16 13:45 12/29/16 13:44 12/15/16 22:18 2 MG Insulin Glargine (Lantus Solostar Pen) 35 units QAM SC 12/16/16 09:00 01/15/17 08:59 12/18/16 08:46 35 UNITS Insulin Aspart (novoLOG ASPART) SLIDING SCALE ACHS SC 12/16/16 16:00 01/15/17 15:59 12/17/16 20:49 5 UNITS Sodium Chloride 1,000 ml @ 100 mls/hr Q10H IV 12/17/16 20:00 01/16/17 19:59 12/18/16 05:50 100 MLS/HR Enteral Nutritional Formula (Boost) 1 can TID PO 12/18/16 09:00 01/17/17 08:59 12/18/16 08:43 1 CAN Enteral Nutritional Formula (Boost Glucose Control) 1 can TID PO 12/18/16 14:00 01/17/17 13:59 Review of Systems The patient does not participate well with questioning and is unable to provide a reliable review of systems. Physical Exam Vital Signs (Past 24 Hrs): Date Time Temp Pulse Resp B/P (MAP) Pulse Ox O2 Delivery O2 Flow Rate FiO2 12/18/16 08:00 Nasal Cannula 3.0 12/18/16 07:34 37.4 66 20 108/61 (77) 97 Nasal Cannula 2.0 12/18/16 04:01 92 Nasal Cannula 2.0 12/18/16 03:53 36.7 76 20 108/53 (71) 93 Nasal Cannula 3.0 12/18/16 00:02 92 Nasal Cannula 2.0 12/18/16 00:00 36.6 72 20 104/48 (66) 93 Nasal Cannula 3.0 12/17/16 20:00 92 Nasal Cannula 2.0 12/17/16 19:18 37.5 82 20 112/46 (68) 92 Room Air 12/17/16 16:00 Room Air 12/17/16 15:11 36.3 86 16 92/56 (68) 90 Room Air 12/17/16 12:05 Room Air 12/17/16 11:25 79 97 12/17/16 10:50 37.4 83 20 96/58 (71) 94 Room Air The patient was examined while he was lying in bed. He is very hard of hearing and becomes easily agitated. He is oriented to person and hospital but not to day of the week or date. He exhibits impaired attention and concentration with simple bedside testing. Memory for recent events impaired. He was able to correctly name simple objects but otherwise did not exhibit much spontaneous speech. He would become quickly agitated and cried out to leave him alone during my assessment. He then began to cry very briefly and then stopped. He then said he was sorry. He seems to have difficulty with comprehending simple directions. He exhibited left right confusion, finger anomia, and acalculia. Visual de [place] grossly full to threat. Visual acuity grossly normal. Pupils equal round reactive to light and accommodation. Eye movements normal. There is no gross facial asymmetry or facial droop. Patient wearing bilateral hearing aids. Diminished hearing to finger rub bilaterally. Palate elevates to midline. Tongue protrudes to midline. Shoulder shrug strength intact bilaterally. Patient did not cooperate well with much of the neurological examination. Sensation could not be adequately tested. Deep tendon reflexes generally diminished. Plantar responses equivocal on the right, downgoing on the left. Patient would not cooperate well with testing of coordination. No pronator drift , however. No gross dysmetria with finger to nose. Would not cooperate with heel -to-dimas. Patient would not cooperate for ophthalmoscopic examination or carotid artery auscultation. Gait and station not tested due to safety concerns. Muscle strength grossly normal in all 4 limbs. No pronator drift or hemiparesis. Muscle tone grossly normal. No rigidity or dystonia. No atrophy. No gross abnormal movements observed. Laboratory Results Past 24 Hours: 12/18/16 07:24 12/18/16 07:24 Test 12/18/16 06:31 12/18/16 07:24 Bedside Glucose 106 mg/dl (70-99) Red Blood Count 2.47 M/uL (4.7-6.1) Mean Corpuscular Volume 89.5 fL (80-100) Mean Corpuscular Hemoglobin 30.8 pg (25-34) Mean Corpuscular Hemoglobin Concent 34.4 g/dl (32-36) RDW Standard Deviation 40.7 fL (36.4-46.3) RDW Coefficient of Variation 12.5 % (11.5-14.5) Mean Platelet Volume 9.6 fL (7.4-10.4) Anion Gap 5.0 mmol/L (3-11) Est Creatinine Clear Calc Drug Dose 68.5 ml/min Estimated GFR () 96.8 Estimated GFR (Non- 83.5 BUN/Creatinine Ratio 32.7 (10-20) Calcium Level 8.2 mg/dl (8.5-10.1) Magnesium Level 1.9 mg/dl (1.8-2.4) Total Bilirubin 0.7 mg/dl (0.2-1) Aspartate Amino Transf (AST/SGOT) 52 U/L (15-37) Alanine Aminotransferase (ALT/SGPT) 14 U/L (12-78) Alkaline Phosphatase 61 U/L (45-117) Total Protein 5.4 gm/dl (6.4-8.2) Albumin 2.2 gm/dl (3.4-5.0) Globulin 3.2 gm/dl (2.5-4.0) Albumin/Globulin Ratio 0.7 (0.9-2) Imaging I reviewed the images and radiologist's interpretation of the previously completed brain MRI from [address] of the head completed in 2016. The results of these tests are described in the history of present illness. 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 These deficits would likely localize to his previously identified left frontoparietal infarct. He has also exhibited some signs of frontal lobe dysfunction including utilization behavior, fluctuating emotional outbursts, and perhaps some perseveration on examination as well. He does not appear to have an associated hemiparesis. It is unclear to me if these observed changes are the result of delirium occurring in the context of his current hospitalization and postop status or if they represent a new focal process such as a recent stroke, perhaps affecting the dominant frontal lobe. Previous testing has suggested a moderate stenosis of the left internal carotid artery which could be significant as such a lesion may predispose to carotid embolic events or hypoperfusion to the dominant hemisphere. Furthermore, as alluded to in the history of present illness, this patient may have an element of mild cognitive impairment at baseline related to age and chronic cerebrovascular disease. Mild cognitive impairment coupled with his previous left frontoparietal infarct could be considered significant risk factors for the development of delirium in the context of his current hospitalization. Plan I agree with obtaining a brain MRI to exclude an acute process such as ischemic stroke. The study would also be useful to assess for any significant interval change compared with his imaging completed last year. It would probably be worthwhile to obtain an up-to-date carotid ultrasound and/ or an MRA of the neck. I will make further recommendations pending completion of these tests.
[2016-12-18] MEDS: PANTOprazole INJ 40 MG in SYRINGE 0 ML IV SCH (10:57)
[2016-12-18] MEDS: BOOST GLUCOSE CONTROL PO SCH ×2 (13:42→20:12)
[2016-12-18] MEDS: MoRPHine SULFATE 2 MG/ML CARP IV PRN ×2 (15:50→20:55)
--- NOTE | 2016-12-18 19:22 | DIAGNOSTIC IMAGING REPORT ---
BRAIN COMBO HISTORY: 86 years-old Male change in mental status acute altered mental status with dizziness and altered responsiveness and slurred speech. Initial exam. COMPARISON: MRI brain 01/20/2015 TECHNIQUE: Multiplanar multisequence MRI of the brain was obtained both with and without the use of 7.5 mL Gadavist. FINDINGS: The large [id number] localizer images demonstrate no gross abnormality. 6 x 6 mm focus of restricted diffusion within the periventricular left frontal lobe with T2 shine through on the ADC map, and mildly increased T2/FLAIR signal compatible with subacute lacunar infarction. No significant mass effect or associated large territorial infarct. Midline structures including the corpus callosum, brainstem, optic chiasm, pituitary and pineal glands are unremarkable in the sagittal T1 FLAIR. No cerebellar tonsillar herniation. Degenerative changes are seen about the cervical spine. There is moderate cerebral atrophy with ex vacuo ventriculomegaly. Remote infarction of the left parietal and left frontal lobe lobes are noted. Chronic microvascular ischemic changes are present. Major flow voids at the level of the skull base appear patent. Orbits are symmetric. Large left and small right mastoid effusion. Paranasal sinuses are clear. No abnormal intra-axial or extra-axial enhancement identified. IMPRESSION: 1. 6 x 6 mm subacute lacunar infarction involves the left periventricular frontal lobe. No associated hemorrhage or significant mass effect. 2. Chronic changes as above including remote left frontal and left parietal infarctions The above report was generated using voice recognition software. It may contain grammatical, syntax or spelling errors. Electronically signed by: Agustin Cleveland M.D. 12/18/2016 7:20 PM Dictated Date/Time: 12/18/2016 7:13 PM
[2016-12-18] MEDS: BIMATOPROST 0.01% OP SOLN 2.5 ML BTL OPB SCH (20:11)
[2016-12-19] VITALS (12 sets, daily range): BP systolic 100–132; BP diastolic 46–60; PULSE 71–85; TEMP 36.7–37.6; O2SAT 90–100
[2016-12-19 03:09] LABS: HEMATOCRIT 25.6 % (42-52); MEAN CELL VOLUME 88.3 fL (80-100); MEAN CORPUSCULAR HEMOGLOBIN 29.7 pg (25-34); MEAN PLATELET VOLUME 9.4 fL (7.4-10.4); PLATELET COUNT 183 K/uL (130-400); WHITE BLOOD COUNT 12.54 K/uL (4.8-10.8)
[2016-12-19 03:19] LABS: INR 0.9 (0.9-1.1); PROTHROMBIN TIME (PATIENT) 10.1 SECONDS (9.0-12.0)
[2016-12-19 03:22] LABS: MEAN CORPUSCULAR HGB CONC 33.6 g/dl (32-36)
[2016-12-19 03:35] LABS: BUN/CREATININE RATIO 31.1 (10-20); CALCIUM 7.8 mg/dl (8.5-10.1); CREATININE 0.66 mg/dl (0.60-1.40); POTASSIUM 4.1 mmol/L (3.5-5.1)
[2016-12-19] MEDS: LEVOTHYROXINE 175 MCG TAB PO SCH (05:18)
[2016-12-19] MEDS: MoRPHine SULFATE 2 MG/ML CARP IV PRN ×4 (05:18→17:38)
[2016-12-19] MEDS: SODIUM CHLORIDE 0.9% 1000ML 1,000 ML IV SCH ×3 (05:55→21:27)
[2016-12-19] MEDS: INSULIN ASPART 100 UNITS/ML 3 ML PEN SC SCH ×4 (07:00→20:45)
--- NOTE | 2016-12-19 07:06 | DIAGNOSTIC IMAGING REPORT ---
ULTRASOUND OF THE CAROTID ARTERIES CLINICAL HISTORY: Carotid artery stenosis. COMPARISON STUDY: Carotid artery ultrasound dated 09/21/2015. TECHNIQUE: Real-time, grayscale, and color Doppler sonography of the carotid arteries is performed. Images are reviewed in the transverse and longitudinal planes. FINDINGS: Blood pressure in the right arm measures 116/43 and blood pressure in the left arm measures 113/54. The carotid arteries are patent bilaterally and demonstrate antegrade flow. There is moderate to advanced echogenic shadowing atherosclerotic plaque seen bilaterally. Normal doppler arterial waveforms are seen throughout. Velocity measurements are listed below. Common carotid peak systolic velocity (cm/sec): RIGHT: 83 LEFT: 100 ICA proximal peak systolic velocity (cm/sec): RIGHT: 68 LEFT: 272 ICA mid peak systolic velocity (cm/sec): RIGHT: 81 LEFT: 167 ICA distal peak systolic velocity (cm/sec): RIGHT: 74 LEFT: 100 ICA/CC peak systolic ratio: RIGHT: 1.0 LEFT: 2.7 Antegrade flow was shown in the vertebral arteries. The external carotid arteries are patent. IMPRESSION: 1. Atherosclerotic plaque with evidence of greater than 70% stenosis at the origin of the left internal carotid artery by velocity criteria. 2. There is no sonographic evidence of hemodynamically significant stenosis in the right carotid arterial system. 3. Antegrade flow is shown in the vertebral arteries. Electronically signed by: Brad Kc M.D. 12/19/2016 7:05 AM Dictated Date/Time: 12/19/2016 7:02 AM
[2016-12-19] MEDS ORDERED: NURSING VERBAL MED ORDER ONE (08:00)
[2016-12-19] MEDS ORDERED: LIDOCAINE/EPINEPHRINE 1% 20 ML VIAL INFIL ONE (08:15)
[2016-12-19] MEDS: BOOST GLUCOSE CONTROL PO SCH ×3 (09:00→20:44)
--- NOTE | 2016-12-19 09:25 | Clinical Documentation Query ---
Dr. [facility]ANE[facility] [place] : CLINICAL DOCUMENTATION QUERY Please clarify so as to avoid qa internship uncertainty at time of discharge. Thank you. In your clinical opinion is this patient being managed for: ( ) Subacute left periventricular frontal cerebral infarction, postoperative, a complication of care ( x ) Subacute left periventricular frontal cerebral infarction, POA, not a complication of care ( ) Not Agree ( ) Other explanation of clinical findings (Please Explain) ( ) Unable to determine (Please Define) ( ) Need to Discuss The medical record reflects the following clinical findings, treatment, and risk factors. Clinical Indicators: MRI findings, alteration in mental status Treatment: Neurology consultation, ICU/PCU standard of care Risk Factors: Age, history of CVA, known peripheral vascular disease, carotid stenosis Please clarify and document your clinical opinion in the progress notes and discharge summary. Terms such as "probable", "suspected", "likely", "questionable", "possible", or "still to be ruled out" are acceptable. IF IN AGREEMENT, YOU MUST DOCUMENT ABOVE DIAGNOSTIC STATEMENT IN DAILY PROGRESS NOTES AND DISCHARGE SUMMARY. This document is not part of the patient's record. Thank You, Ean E[place]a, WILL [phone]
--- NOTE | 2016-12-19 09:38 | Neurology Progress Notes ---
Neurology Progress Note Date of Service Dec 19, 2016. Subjective Follow-up for change in mental status/stroke The patient continues to exhibit episodes of agitation, emotional lability, and confusion. I reviewed the images and radiologist's interpretation of the brain MRI completed yesterday. There is a small area of restricted diffusion within the left frontal lobe, adjacent to the lateral ventricle, consistent with a subacute ischemic infarct. A carotid duplex reveals a greater than 70% stenosis of the left internal carotid artery. Objective Date Time Temp Pulse Resp B/P (MAP) Pulse Ox O2 Delivery O2 Flow Rate FiO2 12/19/16 08:34 100 Nasal Cannula 2.0 12/19/16 08:12 36.7 84 16 126/58 (80) 100 Nasal Cannula 2.0 12/19/16 06:09 98 Nasal Cannula 2.0 Humidified Oxygen 12/19/16 03:45 37.0 75 18 111/51 (71) 99 Nasal Cannula 3.0 12/19/16 02:19 78 132/54 (80) 100 12/19/16 01:30 71 100/54 (69) 99 Nasal Cannula 3.0 12/19/16 00:14 77 20 103/49 (67) 93 Nasal Cannula 3.0 Humidified Oxygen 12/18/16 23:30 36.7 73 18 97/49 (65) 99 Nasal Cannula 4.0 12/18/16 20:00 36.8 71 20 107/38 (61) 97 Nasal Cannula 4.0 12/18/16 20:00 Nasal Cannula 3.0 12/18/16 19:46 36.8 71 22 107/38 97 4.0 12/18/16 19:16 36.6 72 19 105/45 99 4.0 12/18/16 18:46 36.6 73 19 112/48 98 4.0 12/18/16 18:15 71 20 140/56 100 4.0 12/18/16 17:45 36.8 79 20 103/45 100 4.0 12/18/16 17:15 36.8 71 19 104/44 95 4.0 12/18/16 17:02 36.8 88 20 73/55 92 4.0 12/18/16 16:00 Nasal Cannula 3.0 12/18/16 15:44 36.8 76 20 104/50 (68) 92 Room Air 12/18/16 13:40 36.4 73 18 106/57 95 3.0 12/18/16 13:00 36.6 78 18 110/62 93 3.0 12/18/16 12:43 36.8 92 18 104/62 94 3.0 12/18/16 12:25 36.4 79 20 113/63 93 3.0 12/18/16 12:00 Nasal Cannula 3.0 12/18/16 11:57 81 18 110/56 95 3.0 12/18/16 11:57 36.5 79 20 115/59 95 3.0 12/18/16 11:34 36.8 72 18 103/55 95 3.0 12/18/16 11:20 36.5 80 18 115/64 94 3.0 12/18/16 11:18 36.5 73 20 104/63 (77) 94 Nasal Cannula 3.0 Last 24 Hours Test 12/18/16 11:17 12/18/16 17:14 12/18/16 20:56 12/18/16 21:02 Bedside Glucose 245 mg/dl 115 mg/dl 124 mg/dl Stool Occult Blood POSITIVE Test 12/18/16 21:10 12/19/16 02:59 Hemoglobin 9.0 g/dL 8.6 g/dL Hematocrit 26.0 % 25.6 % White Blood Count 12.54 K/uL Red Blood Count 2.90 M/uL Mean Corpuscular Volume 88.3 fL Mean Corpuscular Hemoglobin 29.7 pg Mean Corpuscular Hemoglobin Concent 33.6 g/dl RDW Standard Deviation 43.9 fL RDW Coefficient of Variation 13.5 % Platelet Count 183 K/uL Mean Platelet Volume 9.4 fL Prothrombin Time 10.1 SECONDS Prothromb Time International Ratio 0.9 Sodium Level 136 mmol/L Potassium Level 4.1 mmol/L Chloride Level 103 mmol/L Carbon Dioxide Level 29 mmol/L Anion Gap 4.0 mmol/L Blood Urea Nitrogen 21 mg/dl Creatinine 0.66 mg/dl Est Creatinine Clear Calc Drug Dose 76.8 ml/min Estimated GFR () 101.5 Estimated GFR (Non- 87.5 BUN/Creatinine Ratio 31.1 Random Glucose 92 mg/dl Calcium Level 7.8 mg/dl Exam: As above, the patient remains confused and exhibits episodic emotional lability and agitation. Attention and concentration are impaired. He complains about left foot pain during my assessment. He appears to move all 4 limbs equally and does not have signs of a gross hemiparesis. Current Inpatient Medications Medications (Trade) Dose Ordered Sig/[place] Route Start Time Stop Time Status Last Admin Dose Admin Acetaminophen (Tylenol Tab) 650 mg Q4H PRN PO 12/15/16 12:15 01/14/17 12:14 12/17/16 09:36 650 MG Oxycodone/ Acetaminophen (Percocet 5-325mg Tab) `1-2 TABS FOR MODER... Q4H PRN PO 12/15/16 12:15 12/29/16 12:14 12/18/16 09:39 1 TAB Morphine Sulfate (MoRPHine SULFATE INJ) 4 mg Q2H PRN IV 12/15/16 12:15 12/29/16 12:14 Ondansetron HCl (Zofran Inj) 4 mg Q6H PRN IV 12/15/16 12:15 01/14/17 12:14 12/16/16 16:34 4 MG Pantoprazole Sodium 40 mg/ Syringe 10 ml @ 5 mls/min DAILY@11 IV 12/16/16 11:00 01/15/17 10:59 12/18/16 10:57 5 MLS/MIN Enoxaparin Sodium (Lovenox Inj) 30 mg Q12 SQ 12/15/16 20:00 01/14/17 19:59 Future Hold 12/18/16 08:47 30 MG Aspirin (Ecotrin Tab) 81 mg QAM PO 12/16/16 09:00 01/15/17 08:59 12/18/16 08:44 81 MG Clopidogrel Bisulfate (plAVix TAB) 75 mg QAM PO 12/16/16 09:00 01/15/17 08:59 12/18/16 08:44 75 MG Dorzolamide/ Timolol (Cosopt Op Soln) 1 drops BID OPB 12/15/16 21:00 01/14/17 20:59 12/18/16 20:11 1 DROPS Levothyroxine Sodium (Synthroid Tab) 175 mcg DAILYBB PO 12/16/16 06:00 01/15/17 05:59 12/18/16 05:50 175 MCG Lisinopril (Zestril Tab) 20 mg BID PO 12/15/16 21:00 01/14/17 20:59 12/18/16 08:45 20 MG Lorazepam (Ativan Tab) 0.5 mg BID PRN PO 12/15/16 12:15 01/14/17 12:14 Metoprolol Tartrate (Lopressor Tab) 25 mg BID PO 12/15/16 21:00 01/14/17 20:59 12/18/16 20:10 25 MG Simvastatin (Zocor Tab) 80 mg QAM PO 12/16/16 09:00 01/15/17 08:59 12/18/16 08:44 80 MG Tamsulosin HCl (Flomax Cap) 0.4 mg QAM PO 12/16/16 09:00 01/15/17 08:59 12/18/16 08:44 0.4 MG Triamterene/HCTZ (Dyazide 37.5/25 Mg Cap) 1 cap QAM PO 12/16/16 09:00 01/15/17 08:59 12/18/16 08:45 1 CAP Amlodipine Besylate (Norvasc Tab) 10 mg DAILY PO 12/16/16 09:00 01/15/17 08:59 12/18/16 08:44 10 MG Bimatoprost (Lumigan 0.01%) 1 drops HS OPB 12/15/16 21:00 01/14/17 20:59 12/18/16 20:11 1 DROPS Ferrous Sulfate (Feosol Tab) 325 mg QAM PO 12/16/16 09:00 01/15/17 08:59 12/18/16 08:44 325 MG Glucose (Glucose 40% Gel) 15-30 GRAMS 15 GRAMS... UD PRN PO 12/15/16 12:15 01/14/17 12:14 Glucose (Glucose Chew Tab) 4-8 Tablets 4 Tabl... UD PRN PO 12/15/16 12:15 01/14/17 12:14 Dextrose (Dextrose 50% 50ML Syringe) 25-50ML OF 50% DW IV FOR... UD PRN IV 12/15/16 12:15 01/14/17 12:14 Glucagon (Glucagon Inj) 1 mg UD PRN SQ 12/15/16 12:15 01/14/17 12:14 Morphine Sulfate (MoRPHine SULFATE INJ) 2 mg Q2H PRN IV 12/15/16 13:45 12/29/16 13:44 12/19/16 08:53 2 MG Insulin Glargine (Lantus Solostar Pen) 35 units QAM SC 12/16/16 09:00 01/15/17 08:59 12/18/16 08:46 35 UNITS Insulin Aspart (novoLOG ASPART) SLIDING SCALE ACHS SC 12/16/16 16:00 01/15/17 15:59 12/18/16 12:02 7 UNITS Sodium Chloride 1,000 ml @ 100 mls/hr Q10H IV 12/17/16 20:00 01/16/17 19:59 12/19/16 05:55 100 MLS/HR Enteral Nutritional Formula (Boost Glucose Control) 1 can TID PO 12/18/16 14:00 01/17/17 13:59 12/18/16 20:12 1 CAN Impression 86-year-old male with agitation, emotional lability, and confusion status post left femoropopliteal bypass/stent now with a recently identified subacute ischemic infarct within the left frontal lobe. 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 He probably has an element of mild cognitive impairment versus early dementia at baseline which has been aggravated by his recent hospitalization and probably contributes to his delirium. He has a history of stenosis of the left internal carotid artery which appears to be greater than 70% on yesterday's carotid duplex. This vascular lesion would probably be considered clinically significant in light of his previous and most recent left hemispheric infarct. Plan Case discussed with Dr. Valenzuela. CT angiogram of the neck has been ordered. Left carotid endarterectomy may be appropriate depending on results of angiogram. Patient may follow-up with me in clinic for further assessment of his neurological status including further assessment of possible mild dementia.
--- NOTE | 2016-12-19 09:45 | Anesthesiology Progress Note ---
Anesthesia Post Op Note Date & Time Dec 19, 2016 at 09:44 Vital Signs Pain Intensity: 10.0 Vital Signs Past 12 Hours Date Time Temp Pulse Resp B/P (MAP) Pulse Ox O2 Delivery O2 Flow Rate FiO2 12/19/16 08:34 100 Nasal Cannula 2.0 12/19/16 08:12 36.7 84 16 126/58 (80) 100 Nasal Cannula 2.0 12/19/16 06:09 98 Nasal Cannula 2.0 Humidified Oxygen 12/19/16 03:45 37.0 75 18 111/51 (71) 99 Nasal Cannula 3.0 12/19/16 02:19 78 132/54 (80) 100 12/19/16 01:30 71 100/54 (69) 99 Nasal Cannula 3.0 12/19/16 00:14 77 20 103/49 (67) 93 Nasal Cannula 3.0 Humidified Oxygen 12/18/16 23:30 36.7 73 18 97/49 (65) 99 Nasal Cannula 4.0 Notes PA in room assessing pulses with doppler. pt with O2 per NC. in no acute distress. resting comfortably. family in room.
[2016-12-19] MEDS: ASPIRIN 81 MG ECTAB PO SCH (09:49)
[2016-12-19] MEDS: AMLODIPINE BESYLATE 5 MG TAB PO SCH (09:50)
[2016-12-19] MEDS: OXYCODONE/ACETAMINOPHEN 5-325 TAB PO PRN ×3 (09:51→21:23)
[2016-12-19] MEDS: CLOPIDOGREL BISULFATE 75 MG TAB PO SCH (09:53)
[2016-12-19] MEDS: LISINOPRIL 20 MG TAB PO SCH ×2 (09:53→20:45)
[2016-12-19] MEDS: TRIAMTERENE/HCTZ 37.5/25MG CAP PO SCH (09:54)
[2016-12-19] MEDS: SIMVASTATIN 80 MG TAB PO SCH (09:54)
[2016-12-19] MEDS: TAMSULOSIN HCL 0.4 MG CAP PO SCH (09:54)
[2016-12-19] MEDS: METOPROLOL TARTRATE 25 MG TAB PO SCH ×2 (09:54→21:22)
[2016-12-19] MEDS: DORZOLAMIDE/TIMOLOL 22.3/6.8MG/ML 10 ML BTL OPB SCH ×2 (09:55→20:44)
[2016-12-19] MEDS: INSULIN GLARGINE SOLOSTAR 100 UNITS/ML 3 ML PEN SC SCH (10:00)
[2016-12-19] MEDS: FERROUS SULFATE 325 MG TAB PO SCH (10:26)
[2016-12-19] MEDS: PANTOprazole INJ 40 MG in SYRINGE 0 ML IV SCH (10:26)
--- NOTE | 2016-12-19 11:26 | Progress Note ---
Progress Note Date of Service: Dec 19, 2016. Subjective 86 yo m with multiple medical problems, POD # 4 after L fem-pop hybrid BPG and popliteal art stent, seen in f/u today. Pt appears mildly confused, per daughter, mentation is improved compared to yesterday. Pt c/o pain in l foot/ toes, improves with morphine. Pt about to leave floor for US of graft. Problem List Medical Problems: (1) Bradycardia Status: Acute (2) Dizziness Status: Acute (3) Palpitations Status: Acute (4) Right inguinal hernia Status: Acute Objective Vital Signs Vital Signs Past 12 Hours Date Time Temp Pulse Resp B/P (MAP) Pulse Ox O2 Delivery O2 Flow Rate FiO2 12/19/16 08:34 100 Nasal Cannula 2.0 12/19/16 08:12 36.7 84 16 126/58 (80) 100 Nasal Cannula 2.0 12/19/16 06:09 98 Nasal Cannula 2.0 Humidified Oxygen 12/19/16 03:45 37.0 75 18 111/51 (71) 99 Nasal Cannula 3.0 12/19/16 02:19 78 132/54 (80) 100 12/19/16 01:30 71 100/54 (69) 99 Nasal Cannula 3.0 12/19/16 00:14 77 20 103/49 (67) 93 Nasal Cannula 3.0 Humidified Oxygen 12/18/16 23:30 36.7 73 18 97/49 (65) 99 Nasal Cannula 4.0 Exam CONST: A&O x2, NAD, chronically ill appearing male CHEST: ectopy noted, but appears to be sinus rhythm. Lungs decreased,but ctab ABD: soft,nontender, + bs x 4 quad EXT: LLE incisions intact with fernando. Groin incision with minimal bloody drainage on dressing currently. + ecchymosis of L thigh. nonpalpable distal pulses. L foot cool, pale. Faint doppler over peroneal near ankle. + doppler popliteal Laboratory and Microbiology Results Past 24 Hours Test 12/18/16 17:14 12/18/16 20:56 12/18/16 21:02 12/18/16 21:10 Range/Units Bedside Glucose 115 124 70-99 mg/dl Stool Occult Blood POSITIVE NEGATIVE Hemoglobin 9.0 14.0-18.0 g/dL Hematocrit 26.0 42-52 % Test 12/19/16 02:59 Range/Units White Blood Count 12.54 4.8-10.8 K/uL Red Blood Count 2.90 4.7-6.1 M/uL Hemoglobin 8.6 14.0-18.0 g/dL Hematocrit 25.6 42-52 % Mean Corpuscular Volume 88.3 80-100 fL Mean Corpuscular Hemoglobin 29.7 25-34 pg Mean Corpuscular Hemoglobin Concent 33.6 32-36 g/dl RDW Standard Deviation 43.9 36.4-46.3 fL RDW Coefficient of Variation 13.5 11.5-14.5 % Platelet Count 183 130-400 K/uL Mean Platelet Volume 9.4 7.4-10.4 fL Prothrombin Time 10.1 9.0-12.0 SECONDS Prothromb Time International Ratio 0.9 0.9-1.1 Sodium Level 136 136-145 mmol/L Potassium Level 4.1 3.5-5.1 mmol/L Chloride Level 103 98-107 mmol/L Carbon Dioxide Level 29 21-32 mmol/L Anion Gap 4.0 3-11 mmol/L Blood Urea Nitrogen 21 7-18 mg/dl Creatinine 0.66 0.60-1.40 mg/dl Est Creatinine Clear Calc Drug Dose 76.8 ml/min Estimated GFR () 101.5 Estimated GFR (Non- 87.5 BUN/Creatinine Ratio 31.1 10-20 Random Glucose 92 70-99 mg/dl Calcium Level 7.8 8.5-10.1 mg/dl ASSESSMENT and PLAN: s/p L fem-pop hybrid BPG and L popliteal art stent Severe PAD with rest pain LLE LICAS with frontal infarct LLE foot is cool and pale, but does not appear significantly altered from past few days. Pt going for US of graft to verify patentcy, however, pain may also be from reperfusion vs severe distal disease. Will await US results before making further recommendations. Regarding carotid disease, will await CTA results before making further recommendations.
--- NOTE | 2016-12-19 12:07 | DIAGNOSTIC IMAGING REPORT ---
LEFT LOWER EXTREMITY ARTERIAL DOPPLER STUDY CLINICAL HISTORY: graft patency. Cold left foot foot. COMPARISON STUDY: None. FINDINGS: The left femoral-popliteal graft appears completely occluded. Low velocity monophasic waveform seen within the left common femoral and proximal to mid left superficial femoral artery. The distal left superficial femoral artery, popliteal artery, and posterior tibial artery are occluded. The left dorsalis pedis artery is not identified and may also be occluded. Trace flow within the left peroneal artery and left anterior tibial arteries. There is a 4.6 x 3.1 x 2.8 cm avascular hypoechoic area within the left distal thigh adjacent to the graft. IMPRESSION: 1. The left femoropopliteal graft is completely occluded. 2. The distal left superficial femoral artery, popliteal artery and posterior tibial arteries are also occluded. 3. The dorsalis pedis artery is not identified and may be occluded. 4. Trace flow within the left anterior tibial and peroneal arteries. 5. A 4.6 x 3.1 x 2.8 cm a vascular hypoechoic area within the left distal thigh adjacent to the graft. This could represent an old hematoma. Electronically signed by: Devan Looney M.D. 12/19/2016 12:06 PM Dictated Date/Time: 12/19/2016 12:00 PM
[2016-12-19] MEDS ORDERED: OPTIRAY 320 IV PRN (18:15)
--- NOTE | 2016-12-19 18:42 | DIAGNOSTIC IMAGING REPORT ---
NECK ANGIO WITH CONTRAST HISTORY: Mental status change stroke TECHNIQUE: Multiaxial CT images of the neck were performed following the intravenous administration of contrast to evaluate the major cervical vessels. Maximum intensity projection images were also obtained. All measurements were calculated based on NASCET criteria. A dose lowering technique was utilized adhering to the principles of ALARA. COMPARISON STUDY: None. FINDINGS: Moderate atherosclerotic change of the structures of the aortic arch. Considerable atherosclerotic change of the subclavian arteries. Moderate plaque formation involving the bulk of the main carotid arteries. Considerable plaque formation at the carotid bifurcations bilaterally. No evidence for a high-grade stenosis of the right bifurcation with approximately a 50% narrowing of the internal as well as external carotid arteries at their origin. Left carotid system demonstrates a 75-80% narrowing origin left internal carotid artery with 50% narrowing of the origin of the external carotid artery. There is moderate atherosclerotic change of the carotid siphons. There is considerable tortuosity of the vertebral basilar system. A 50% narrowing of the distal right vertebral artery is present at the level of C2 with approximately 70-80% narrowing of the right vertebral artery slightly proximal to its juncture with the left vertebral vessel. IMPRESSION: 1. Considerable plaque formation throughout all major arterial structures of the neck 2. 75-80% narrowing origin left internal carotid artery. 3. 50% narrowing origin left external carotid artery as well as the right internal and external carotid arteries. 4. 70-80% narrowing distal right vertebral artery The above report was generated using voice recognition software. It may contain grammatical, syntax or spelling errors. Electronically signed by: Scotty Maki M.D. 12/19/2016 6:41 PM Dictated Date/Time: 12/19/2016 6:30 PM
[2016-12-19] MEDS: BIMATOPROST 0.01% OP SOLN 2.5 ML BTL OPB SCH (20:44)
[2016-12-20] VITALS (9 sets, daily range): BP systolic 107–119; BP diastolic 44–52; PULSE 75–96; TEMP 36.5–37.5; O2SAT 90–99
[2016-12-20] MEDS: OXYCODONE/ACETAMINOPHEN 5-325 TAB PO PRN ×3 (04:48→20:36)
[2016-12-20] MEDS: LEVOTHYROXINE 175 MCG TAB PO SCH (04:49)
[2016-12-20] MEDS: INSULIN ASPART 100 UNITS/ML 3 ML PEN SC SCH ×4 (07:00→20:45)
[2016-12-20] MEDS: SODIUM CHLORIDE 0.9% 1000ML 1,000 ML IV SCH ×2 (08:28→17:36)
[2016-12-20] MEDS: DORZOLAMIDE/TIMOLOL 22.3/6.8MG/ML 10 ML BTL OPB SCH ×2 (08:28→20:45)
[2016-12-20] MEDS: BOOST GLUCOSE CONTROL PO SCH ×3 (08:28→20:36)
[2016-12-20] MEDS: METOPROLOL TARTRATE 25 MG TAB PO SCH ×2 (08:29→20:35)
--- NOTE | 2016-12-20 08:31 | Progress Note ---
Progress Note Date of Service Dec 20, 2016. Progress Note Mr. Slaughter is an 86-year-old male admitted by Dr. Barber Valenzuela. He underwent surgery for severe occlusive peripheral arterial disease with ischemia. My only involvement at this time is to address the issue with his resuscitation status. His daughter called me yesterday to discuss this issue. Dr. Valenzuela already spoke with her about his resuscitation status. Given his multiple medical problems including coronary artery disease, severe peripheral vascular disease with his documented cerebral ischemia and the fact that it seems that the graft that was placed seemed to have occluded. Additional treatment option seems to be limited. I spoke with Dr. Valenzuela yesterday and he did not have any objection for me to discuss the resuscitation status with the patient and his daughter. I came in last night to talk to him but he was quite sedated. He was not communicative. So the discussion did not take place. I came in this morning. He is quite awake and alert and communicative. He understands the conversation. His daughter Alda who has his power of cap parts cutter was at his bedside. I explained to the patient his resuscitation status. I specifically asked him if he would want to be resuscitated if his heart stops or his breathing stops. He clearly indicated that he would not want to be resuscitated. His daughter was at his bedside. She heard all the conversation. She is agreeable. I did change the resuscitation level from a full resuscitation to a DO NOT RESUSCITATE level.
[2016-12-20] MEDS: AMLODIPINE BESYLATE 5 MG TAB PO SCH (08:34)
[2016-12-20] MEDS: TRIAMTERENE/HCTZ 37.5/25MG CAP PO SCH (08:34)
[2016-12-20] MEDS: TAMSULOSIN HCL 0.4 MG CAP PO SCH (08:34)
[2016-12-20] MEDS: SIMVASTATIN 80 MG TAB PO SCH (08:35)
[2016-12-20] MEDS: ASPIRIN 81 MG ECTAB PO SCH (08:35)
[2016-12-20] MEDS: CLOPIDOGREL BISULFATE 75 MG TAB PO SCH (08:35)
[2016-12-20] MEDS: FERROUS SULFATE 325 MG TAB PO SCH (08:35)
[2016-12-20] MEDS: LISINOPRIL 20 MG TAB PO SCH ×2 (08:35→20:35)
[2016-12-20] MEDS: INSULIN GLARGINE SOLOSTAR 100 UNITS/ML 3 ML PEN SC SCH (08:44)
[2016-12-20] MEDS: PANTOprazole SOD 40 MG TAB PO SCH (10:11)
--- NOTE | 2016-12-20 11:31 | Progress Note ---
Progress Note Date of Service: Dec 20, 2016. Subjective 86 yo m with multiple medical problems, POD #5 after LLE fem-pop hybrid BPG, seen in f/u today. Pt admits pain in LLE, per RN has been requiring pain medication regularly and cries out in pain occasionally. Pt himself seems confused. Answers some questions appropriately. Problem List Medical Problems: (1) Bradycardia Status: Acute (2) Dizziness Status: Acute (3) Palpitations Status: Acute (4) Right inguinal hernia Status: Acute Objective Vital Signs Vital Signs Past 12 Hours Date Time Temp Pulse Resp B/P (MAP) Pulse Ox O2 Delivery O2 Flow Rate FiO2 12/20/16 11:09 37.0 83 18 110/44 (66) 93 1.0 12/20/16 10:58 97 Nasal Cannula 2.0 12/20/16 08:53 86 24 107/51 (69) 97 Nasal Cannula 2.0 12/20/16 08:20 97 Nasal Cannula 2.0 12/20/16 04:00 Nasal Cannula 2.0 12/20/16 03:15 36.8 79 20 119/50 (73) 97 Nasal Cannula 2.0 12/19/16 23:59 Nasal Cannula 2.0 Exam CONST: A&O x2, NAD, chronically ill appearing male CHEST: RRR lungs decreased but ctab ABD: soft, nontender, + bs x 4quad EXT: L upper leg incisions C/D/I with fernando. Moderate local ecchymosis and edema and tenderness. Lower leg cool to touch, pale, delayed cap refill. Laboratory and Microbiology Results Past 24 Hours Test 12/19/16 12:37 12/19/16 15:50 12/19/16 20:41 12/20/16 06:29 Range/Units Bedside Glucose 161 122 122 110 70-99 mg/dl ASSESSMENT and PLAN: s/p LLE fem-pop hybrid BPG, occluded Severe PAD with rest pain Pt stable. bypass graft occluded by US, exam consistent. No surgical options for revascularization. Continue to monitor for pain relief.
[2016-12-20] MEDS: MoRPHine SULFATE 2 MG/ML CARP IV PRN (17:33)
[2016-12-20] MEDS: BIMATOPROST 0.01% OP SOLN 2.5 ML BTL OPB SCH (20:45)
[2016-12-21] VITALS (9 sets, daily range): BP systolic 103–125; BP diastolic 57–64; PULSE 59–105; TEMP 36.3–36.9; O2SAT 90–97
[2016-12-21] MEDS: MoRPHine SULFATE 2 MG/ML CARP IV PRN (01:22)
[2016-12-21] MEDS: OXYCODONE/ACETAMINOPHEN 5-325 TAB PO PRN ×2 (03:21→07:49)
[2016-12-21] MEDS: LEVOTHYROXINE 175 MCG TAB PO SCH (06:12)
[2016-12-21] MEDS: SODIUM CHLORIDE 0.9% 1000ML 1,000 ML IV SCH ×2 (06:13→13:50)
[2016-12-21 06:17] LABS: HEMATOCRIT 24.5 % (42-52); MEAN CELL VOLUME 91.1 fL (80-100); MEAN CORPUSCULAR HEMOGLOBIN 30.1 pg (25-34); MEAN CORPUSCULAR HGB CONC 33.1 g/dl (32-36); MEAN PLATELET VOLUME 9.3 fL (7.4-10.4); PLATELET COUNT 270 K/uL (130-400); RED BLOOD COUNT 2.69 M/uL (4.7-6.1); WHITE BLOOD COUNT 16.78 K/uL (4.8-10.8)
[2016-12-21 06:42] LABS: CREATININE 0.53 mg/dl (0.60-1.40)
--- NOTE | 2016-12-21 07:52 | Progress Note ---
Progress Note Date of Service: Dec 21, 2016. Subjective Did not complain of pain when I saw him but did yell with pain later. Problem List Medical Problems: (1) Bradycardia Status: Acute (2) Dizziness Status: Acute (3) Palpitations Status: Acute (4) Right inguinal hernia Status: Acute Objective Vital Signs Vital Signs Past 12 Hours Date Time Temp Pulse Resp B/P (MAP) Pulse Ox O2 Delivery O2 Flow Rate FiO2 12/21/16 04:00 Nasal Cannula 2.0 12/21/16 03:16 36.8 88 20 125/63 (83) 97 Nasal Cannula 2.0 12/20/16 23:59 Nasal Cannula 2.0 12/20/16 23:26 36.5 75 20 115/52 (73) 99 Nasal Cannula 2.0 12/20/16 20:00 Nasal Cannula 2.0 Exam VSS Afebrile Incision clean and dry. No bleeding Foot still viable Laboratory and Microbiology Results Past 24 Hours Test 12/20/16 11:03 12/20/16 16:18 12/20/16 20:26 12/21/16 05:48 Range/Units Bedside Glucose 170 103 136 70-99 mg/dl White Blood Count 16.78 4.8-10.8 K/uL Red Blood Count 2.69 4.7-6.1 M/uL Hemoglobin 8.1 14.0-18.0 g/dL Hematocrit 24.5 42-52 % Mean Corpuscular Volume 91.1 80-100 fL Mean Corpuscular Hemoglobin 30.1 25-34 pg Mean Corpuscular Hemoglobin Concent 33.1 32-36 g/dl RDW Standard Deviation 44.5 36.4-46.3 fL RDW Coefficient of Variation 13.6 11.5-14.5 % Platelet Count 270 130-400 K/uL Mean Platelet Volume 9.3 7.4-10.4 fL Creatinine 0.53 0.60-1.40 mg/dl Est Creatinine Clear Calc Drug Dose 95.7 ml/min Estimated GFR () 111.0 Estimated GFR (Non- 95.8 Imp: Post fem pop bypass Plan: Patient with occluded bypass. No further revasc possible. Patient now a DNR. Will keep observing foot at this time. He is having pain in the left leg but not totally convinced it is ischemic rest pain of the foot. Transfer to floor Palliative care consult.
[2016-12-21] MEDS ORDERED: OXYCODONE/ACETAMINOPHEN 5-325 TAB PO PRN ×2 (08:15→12:15)
[2016-12-21] MEDS: INSULIN ASPART 100 UNITS/ML 3 ML PEN SC SCH ×4 (08:35→20:28)
[2016-12-21] MEDS: TRIAMTERENE/HCTZ 37.5/25MG CAP PO SCH (08:37)
[2016-12-21] MEDS: DORZOLAMIDE/TIMOLOL 22.3/6.8MG/ML 10 ML BTL OPB SCH ×2 (08:37→20:00)
[2016-12-21] MEDS: ASPIRIN 81 MG ECTAB PO SCH (08:38)
[2016-12-21] MEDS: FERROUS SULFATE 325 MG TAB PO SCH (08:38)
[2016-12-21] MEDS: TAMSULOSIN HCL 0.4 MG CAP PO SCH (08:39)
[2016-12-21] MEDS: METOPROLOL TARTRATE 25 MG TAB PO SCH ×2 (08:40→20:00)
[2016-12-21] MEDS: AMLODIPINE BESYLATE 5 MG TAB PO SCH (08:40)
[2016-12-21] MEDS: CLOPIDOGREL BISULFATE 75 MG TAB PO SCH (08:41)
[2016-12-21] MEDS: PANTOprazole SOD 40 MG TAB PO SCH (08:42)
[2016-12-21] MEDS: LISINOPRIL 20 MG TAB PO SCH (08:43)
[2016-12-21] MEDS: SIMVASTATIN 80 MG TAB PO SCH (08:43)
[2016-12-21] MEDS: BOOST GLUCOSE CONTROL PO SCH ×3 (09:51→20:00)
[2016-12-21] MEDS: INSULIN GLARGINE SOLOSTAR 100 UNITS/ML 3 ML PEN SC SCH ×2 (09:58→10:04)
--- NOTE | 2016-12-21 11:44 | Palliative Care Consultation ---
Consultation Date of Consultation: Dec 21, 2016. Requesting Physician: Dr. Valenzuela Attending Physician: Dr. Valenzuela Reason for Consultation: Goals of care History of Present Illness This 86 year old gentleman presented to the hospital six days ago for evaluation of his left ischemic foot/arterial disease. He underwent left fem pop bypass on 12/15/16. Unfortunately, his bypass occluded, and left foot remains painful and ischemic. On 12/17, patient was noted by daughter, Alda, to be behaving abnormally. Was found on MRI to have a subacute [id number] left periventricular frontal infarct. Given patient's history, comorbidities, and age , Dr. Tai Calvo came to speak with the patient and his daughter last evening about code status. Patient was made a DNR by his own will, daughter/POJoyce Lizama was present as well. Today, the patient was transferred to [facility], palliative care consulted to assist with establishing goals of care. I met with the patient and his daughter/POA Alda. Alda Slaughter is named the POA in patient's advance directive paperwork in our system from a 2016 admission. Patient is confused, really did not answer any questions for me, but was awake and nodded head a couple times. Earlier, nursing reports, patient was screaming out in pain. Alda and I spoke in another room. She is a neuroscience professor at [employer] and is quite knowledgeable and understanding of patient' s medical conditions and situation. She was able to speak with Dr. Valenzuela and Dr. Tai Calvo this morning. She understands that patient is not going to have further surgical intervention (amputation) at this time and that options are limited. Alda would like her father to be made comfortable and allow nature to take its course. She would be okay with him going to SNF for comfort/hospice. I called Dr. Tai Calvo and Violet Sutton PA-C, who was with Dr. Valenzuela to make them aware. All are in agreement with comfort measures only. Past Medical/Surgical History Medical History: CAD S/P CABG x 4 vessels in 2005 Hypertension Diabetes mellitus type 2 Hypothyroidism Carotid artery stenosis Left parietal CVA TIA Social History Smoking Status: Former Smoker (111 pack year smoking history) History of Alcohol Use: Yes (sm glass daily ) Drug Use: none Marital Status: Occupation Status: retired Review of Systems unable to obtain due to patient's mental status Allergies Coded Allergies: No Known Allergies (Unverified , 12/15/16) Medications Current Inpatient Medications Medications (Trade) Dose Ordered Sig/[place] Route Start Time Stop Time Status Last Admin Dose Admin Acetaminophen (Tylenol Tab) 650 mg Q4H PRN PO 12/15/16 12:15 01/14/17 12:14 12/17/16 09:36 650 MG Ondansetron HCl (Zofran Inj) 4 mg Q6H PRN IV 12/15/16 12:15 01/14/17 12:14 12/16/16 16:34 4 MG Enoxaparin Sodium (Lovenox Inj) 30 mg Q12 SQ 12/15/16 20:00 01/14/17 19:59 Future Hold 12/18/16 08:47 30 MG Aspirin (Ecotrin Tab) 81 mg QAM PO 12/16/16 09:00 01/15/17 08:59 12/21/16 08:38 81 MG Clopidogrel Bisulfate (plAVix TAB) 75 mg QAM PO 12/16/16 09:00 01/15/17 08:59 12/21/16 08:41 75 MG Dorzolamide/ Timolol (Cosopt Op Soln) 1 drops BID OPB 12/15/16 21:00 01/14/17 20:59 12/21/16 08:37 1 DROPS Levothyroxine Sodium (Synthroid Tab) 175 mcg DAILYBB PO 12/16/16 06:00 01/15/17 05:59 12/21/16 06:12 175 MCG Lisinopril (Zestril Tab) 20 mg BID PO 12/15/16 21:00 01/14/17 20:59 12/21/16 08:43 20 MG Lorazepam (Ativan Tab) 0.5 mg BID PRN PO 12/15/16 12:15 01/14/17 12:14 12/21/16 09:30 0.5 MG Metoprolol Tartrate (Lopressor Tab) 25 mg BID PO 12/15/16 21:00 01/14/17 20:59 12/21/16 08:40 25 MG Simvastatin (Zocor Tab) 80 mg QAM PO 12/16/16 09:00 01/15/17 08:59 12/21/16 08:43 80 MG Tamsulosin HCl (Flomax Cap) 0.4 mg QAM PO 12/16/16 09:00 01/15/17 08:59 12/21/16 08:39 0.4 MG Triamterene/HCTZ (Dyazide 37.5/25 Mg Cap) 1 cap QAM PO 12/16/16 09:00 01/15/17 08:59 12/21/16 08:37 1 CAP Amlodipine Besylate (Norvasc Tab) 10 mg DAILY PO 12/16/16 09:00 01/15/17 08:59 12/21/16 08:40 10 MG Bimatoprost (Lumigan 0.01%) 1 drops HS OPB 12/15/16 21:00 01/14/17 20:59 12/19/16 20:44 1 DROPS Ferrous Sulfate (Feosol Tab) 325 mg QAM PO 12/16/16 09:00 01/15/17 08:59 12/21/16 08:38 325 MG Glucose (Glucose 40% Gel) 15-30 GRAMS 15 GRAMS... UD PRN PO 12/15/16 12:15 01/14/17 12:14 Glucose (Glucose Chew Tab) 4-8 Tablets 4 Tabl... UD PRN PO 12/15/16 12:15 01/14/17 12:14 Dextrose (Dextrose 50% 50ML Syringe) 25-50ML OF 50% DW IV FOR... UD PRN IV 12/15/16 12:15 01/14/17 12:14 Glucagon (Glucagon Inj) 1 mg UD PRN SQ 12/15/16 12:15 01/14/17 12:14 Insulin Glargine (Lantus Solostar Pen) 35 units QAM SC 12/16/16 09:00 01/15/17 08:59 12/20/16 08:44 35 UNITS Insulin Aspart (novoLOG ASPART) SLIDING SCALE ACHS SC 12/16/16 16:00 01/15/17 15:59 12/20/16 12:06 2 UNITS Sodium Chloride 1,000 ml @ 100 mls/hr Q10H IV 12/17/16 20:00 01/16/17 19:59 12/21/16 06:13 100 MLS/HR Enteral Nutritional Formula (Boost Glucose Control) 1 can TID PO 12/18/16 14:00 01/17/17 13:59 12/20/16 20:36 1 CAN Pantoprazole Sodium (Protonix Tab) 40 mg QAM PO 12/20/16 09:00 01/19/17 08:59 12/21/16 08:42 40 MG Ioversol (Optiray 320) 114 ml UD PRN IV 12/19/16 18:15 12/23/16 18:14 Oxycodone/ Acetaminophen (Percocet 5-325mg Tab) 2 tab Q4H PRN PO 12/21/16 12:15 12/29/16 12:14 UNV Gabapentin (Neurontin Tab) 600 mg BID PO 12/21/16 20:00 01/20/17 19:59 UNV Physical Exam Date Time Temp Pulse Resp B/P (MAP) Pulse Ox O2 Delivery O2 Flow Rate FiO2 12/21/16 09:27 36.8 90 18 121/58 (79) 93 Nasal Cannula 2.0 12/21/16 08:53 93 Nasal Cannula 2.0 12/21/16 08:40 36.3 88 12 109/57 (74) 93 Room Air 12/21/16 08:23 36.8 88 20 97 2.0 12/21/16 08:00 36.4 88 12 109/57 (74) 93 Nasal Cannula 2.0 12/21/16 08:00 Nasal Cannula 2.0 12/21/16 04:00 Nasal Cannula 2.0 12/21/16 03:16 36.8 88 20 125/63 (83) 97 Nasal Cannula 2.0 12/20/16 23:59 Nasal Cannula 2.0 12/20/16 23:26 36.5 75 20 115/52 (73) 99 Nasal Cannula 2.0 12/20/16 20:00 Nasal Cannula 2.0 12/20/16 19:15 37.5 96 31 112/52 (72) 90 Nasal Cannula 2.0 12/20/16 16:00 Nasal Cannula 2.0 12/20/16 15:17 37.0 87 18 118/50 (72) 92 Room Air 2.0 12/20/16 12:10 97 Nasal Cannula 2.0 General Appearance: no apparent distress (when i was in room) ENT: + pertinent finding (hard of hearing, hearing aids not in) Neck: supple, no JVD Respiratory: no respiratory distress, no accessory muscle use, + decreased breath sounds Cardiovascular: regular rate, rhythm, + systolic murmur, + pertinent finding ( left pedal pulse not palpable) Abdomen: normal bowel sounds, soft Musculoskeletal: pertinent finding (left foot slightly more darling colored, cool to the touch) Neurologic/Psychiatric: alert, + disoriented Laboratory Results Last 24 Hours Test 12/20/16 16:18 12/20/16 20:26 12/21/16 05:48 12/21/16 06:33 Bedside Glucose 103 mg/dl 136 mg/dl 70 mg/dl White Blood Count 16.78 K/uL Red Blood Count 2.69 M/uL Hemoglobin 8.1 g/dL Hematocrit 24.5 % Mean Corpuscular Volume 91.1 fL Mean Corpuscular Hemoglobin 30.1 pg Mean Corpuscular Hemoglobin Concent 33.1 g/dl RDW Standard Deviation 44.5 fL RDW Coefficient of Variation 13.6 % Platelet Count 270 K/uL Mean Platelet Volume 9.3 fL Creatinine 0.53 mg/dl Est Creatinine Clear Calc Drug Dose 95.7 ml/min Estimated GFR () 111.0 Estimated GFR (Non- 95.8 Assessment & Plan Palliative Performance Scale: 40 % Problem list: Pain, left foot/leg Altered mental status Left frontal CVA, subacute per MRI report Left carotid stenosis, 70% S/p left fem pop bypass- occluded Hx of left parietal CVA Hx arterial disease, CAD, CABG x4 vessels Goals of care (Z51.5) Palliative care recommendations: -Discussion held with patient's daughter/POA, Alda Slaughter, as patient is confused/disoriented at this time. I personally viewed the DEEDEE paperwork which is in our system from a 2016 admission- Alda is named DEEDEE. Goal is strictly for comfort measures only, no further surgical intervention, no labs, no testing. Alda would like patient to be pain free and to allow natural . This was discussed with Dr. Tai Calvo and Dr. Valenzuela as well. -Dr. Tai Calvo consulted for comfort measures and medical management at this time. -Patient was made DNR yesterday with Dr. Tai Calvo and daughter, Alda. -Roxanol (morphine solution) 5mg PO Q2h PRN if anticipated discharge to SNF. IF patient requiring more aggressive pain medication and/or frequent doses of PRN, could start morphine infusion based on need. -Increase frequency of lorazepam to 0.5mg SL tab Q4h PRN. If agitated, add haloperidol 5mg IM PRN. -Atropine 1% oph soln 4 drops SL Q2h PRN secretions. -Continue oxygen 2LNC for comfort. -Continue Bhandari catheter for now. -May need transfer to SNF if comfort needs are met and can be continued out of hospital. If patient declines rapidly or requires morphine infusion, could consider general inpatient hospice. Thank you kindly for this consult. I will follow as needed.
[2016-12-21] MEDS ORDERED: LORAZEPAM 2 MG/ML 1 ML VIAL IV PRN (11:45)
[2016-12-21] MEDS: LORAZEPAM INJ 0.5 MG in SYRINGE 0.75 ML IV PRN (19:48)
[2016-12-21] MEDS ORDERED: GABAPENTIN 600 MG TAB PO SCH (20:00)
[2016-12-21] MEDS: BIMATOPROST 0.01% OP SOLN 2.5 ML BTL OPB SCH (20:28)
--- NOTE | 2016-12-21 21:32 | Medical Consult ---
Consultation Note Date of Service Dec 21, 2016. Consultation Note 86-year-old male admitted by Dr. Barber Valenzuela with severe ischemic arterial disease of the left leg with ischemic changes of the left foot and severe pain. Patient underwent a revascularization procedure. It was well tolerated. But unfortunately he developed pain after the surgery and ultrasound confirmed that the graft was occluded. No further surgical intervention were judged to be possible mood.patient was having severe pain. He is on pain medication. His condition has deteriorated. He was becoming agitated. Screening on the time. His medical history is quite extensive. He has coronary artery disease. He is status post four-vessel coronary artery bypass graft in 2005, type 2 diabetes mellitus, arterial hypertension, atherosclerotic vascular disease with cerebral ischemic event. In September 2015 he was diagnosed with distal esophageal adenocarcinoma and underwent endoscopic submucosal resection at [facility]. 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 He may very well need an amputation of his left leg if the ischemia becomes severe or if he develops any gangrene. EXAMINATION: GENERAL : Well developed. changing mental status. VITAL SIGNS : Blood Pressure : 115/64, pulse 59, respiration 18, temperature 36.8, oxygen saturation 90% on 2 L oxygen by nasal cannula SKIN : Warm and dry. No rash. HEENT :Oxygen cannula in place. No mucosal abnormalities. NECK : Supple. No lymph node or thyroid enlargement. No JVD. Normal carotid pulses. Bilateral carotid bruits.More pronounced on the left side HEART: Regular heart tones with 2/6 systolic murmur. No rub no gallop. LUNGS: Clear. Normal breath sounds. ABDOMEN: Soft nontender. No organomegaly or masses. Good bowel sounds. EXTREMITIES: No edema. Discoloration of the distal part of the left foot with ischemia absent pedal pulses NEUROLOGICAL EXAMINATION: Is not responding appropriately. Lethargic. Requiring frequent pain medication ASSESSMENT: * severe ischemic peripheral arterial disease with left foot ischemia and failed revascularization procedure * Coronary artery disease * Type 2 diabetes mellitus * Gastroesophageal adenocarcinoma. Status post endovascular submucosal resection * Hypothyroidism * Glaucoma * Atherosclerotic vascular disease PLAN: At this time the decision was made for comfort care. Patient is already receiving morphine sulfate. We continued intermittent dosing for now. Will use continuous IV infusion if needed. I also increased his lorazepam and changed it to 0.5 mg IV every 4 hours. Yesterday I did meet with his daughter and his resuscitation status was changed to a DNR status.she has been at his bedside most of the day today. Would add medications as needed to make sure he is comfortable. Depending on his course over the next couple of days patient will need an extended care facility for palliative care.
[2016-12-21] MEDS: MoRPHine SULFATE 4 MG/ML 1 ML CARP\\VIAL IV PRN ×2 (22:05→22:31)
[2016-12-22] MEDS: SODIUM CHLORIDE 0.9% 1000ML 1,000 ML IV SCH ×3 (00:05→19:54)
[2016-12-22] MEDS: MoRPHine SULFATE 4 MG/ML 1 ML CARP\\VIAL IV PRN ×5 (02:23→18:18)
[2016-12-22] MEDS: LORAZEPAM INJ 0.5 MG in SYRINGE 0.75 ML IV PRN (05:12)
[2016-12-22] MEDS: LEVOTHYROXINE 175 MCG TAB PO SCH (05:29)
[2016-12-22 07:24] VITALS: BP 88/53; PULSE 104; TEMP 36.6; O2SAT 91
[2016-12-22] MEDS: BOOST GLUCOSE CONTROL PO SCH ×3 (08:00→20:00)
[2016-12-22] MEDS: METOPROLOL TARTRATE 25 MG TAB PO SCH ×2 (08:00→20:00)
[2016-12-22] MEDS: INSULIN ASPART 100 UNITS/ML 3 ML PEN SC SCH ×4 (08:26→21:09)
[2016-12-22] MEDS: DORZOLAMIDE/TIMOLOL 22.3/6.8MG/ML 10 ML BTL OPB SCH ×2 (08:28→19:55)
[2016-12-22] MEDS: PANTOprazole SOD 40 MG TAB PO SCH (08:29)
--- NOTE | 2016-12-22 09:46 | Progress Note ---
Progress Note Date of Service: Dec 22, 2016. Subjective 86 yo m with multiple medical problems, POD # 7 after LLE fem-pop hybrid BPG which is now occluded, seen in f/u today. Pt began comfort measures yesterday and appears comfortable. Daughter and other family member present. Problem List Medical Problems: (1) Bradycardia Status: Acute (2) Dizziness Status: Acute (3) Palpitations Status: Acute (4) Right inguinal hernia Status: Acute Objective Vital Signs Vital Signs Past 12 Hours Date Time Temp Pulse Resp B/P (MAP) Pulse Ox O2 Delivery O2 Flow Rate FiO2 12/22/16 07:24 36.6 104 20 88/53 (65) 91 Nasal Cannula 2.0 12/22/16 00:00 Nasal Cannula 2.0 12/21/16 23:46 36.9 105 20 103/62 (76) 93 Nasal Cannula 2.0 Exam CONST: Eyes closed, but rouses easily to voice, minimal responses CHEST: RRR lungs decreased ABD: soft, nontender, + bs x 4 quad EXT: LLE incisions C/D/i with fernando. distal foot mottled, cool. Laboratory and Microbiology Results Past 24 Hours Test 12/21/16 11:32 12/21/16 17:10 12/21/16 19:49 12/22/16 02:08 Range/Units Bedside Glucose 85 130 73 72 70-99 mg/dl Test 12/22/16 07:30 Range/Units Bedside Glucose 107 70-99 mg/dl ASSESSMENT and PLAN: s/p LLE fem-pop hybrid BPG, occluded Severe PAD with rest pain Pt on medications for comfort measures. Continue per Dr Clark. Continue to monitor.
[2016-12-22] MEDS: BIMATOPROST 0.01% OP SOLN 2.5 ML BTL OPB SCH (21:00)
--- NOTE | 2016-12-22 21:03 | Progress Note ---
Progress Note Date of Service Dec 22, 2016. Progress Note 86-year-old male with severe peripheral arterial disease. Underwent a revascularization procedure of his left leg. Unfortunately the graft thrombosed soon after surgery. No other surgical options are possible at this time. After discussion with his daughter the decision was made for comfort care. His medical problems also include coronary artery disease, type 2 diabetes mellitus, arterial hypertension, hypothyroidism, hyperlipidemia. He also had a history of distal esophageal adenocarcinoma which was treated with endoscopic submucosal resection. he also had a left frontal subacute cerebral ischemia. Patient seems to be resting. His pain seems to be under control. He has had no fever. His mental status has been fluctuating. EXAMINATION: GENERAL : Well developed. Well nourished. No acute distress.Lethargic VITAL SIGNS : Blood Pressure : 88/53, pulse 104, respiration 20, temperature 36.6, oxygen saturation 91% on 2 L oxygen by nasal cannula SKIN : Warm and dry. No rash. HEENT :Oxygen cannula in place. NECK : Supple. No adenopathy. no JVD HEART: Regular heart sounds without any murmur rub or gallop. PMI not displaced. LUNGS: Clear. Normal breath sounds. ABDOMEN: Soft nontender. No organomegaly or masses. EXTREMITIES: His left foot is cold to touch. Especially the distal part of his foot. Mottled skin. ASSESSMENT: * severe peripheral arterial disease * Failed bypass attempt * Ischemia of the left foot * Coronary artery disease * Type 2 diabetes mellitus PLAN: * continue the same plan of treatment. * Comfort care * Depending on his condition will decide in the near future about transfer to [facility]
[2016-12-23] MEDS: MoRPHine SULFATE 4 MG/ML 1 ML CARP\\VIAL IV PRN (00:27)
[2016-12-23 00:53] VITALS: BP 119/76; PULSE 82; TEMP 36.6; O2SAT 93
[2016-12-23] MEDS: SODIUM CHLORIDE 0.9% 1000ML 1,000 ML IV SCH ×2 (05:37→15:39)
[2016-12-23] MEDS: LEVOTHYROXINE 175 MCG TAB PO SCH (05:37)
[2016-12-23 07:25] VITALS: BP 115/67; PULSE 102; TEMP 36.7; O2SAT 95
[2016-12-23] MEDS: METOPROLOL TARTRATE 25 MG TAB PO SCH ×2 (07:51→20:00)
[2016-12-23] MEDS: PANTOprazole SOD 40 MG TAB PO SCH (07:51)
[2016-12-23] MEDS: BOOST GLUCOSE CONTROL PO SCH ×3 (07:51→20:00)
[2016-12-23] MEDS: DORZOLAMIDE/TIMOLOL 22.3/6.8MG/ML 10 ML BTL OPB SCH ×2 (07:52→20:38)
[2016-12-23] MEDS: INSULIN ASPART 100 UNITS/ML 3 ML PEN SC SCH ×4 (07:58→20:43)
--- NOTE | 2016-12-23 08:40 | Progress Note ---
Progress Note Date of Service: Dec 23, 2016. Subjective Patient arouses easily. Denies any foot pain today. Says it feels really good Problem List Medical Problems: (1) Bradycardia Status: Acute (2) Dizziness Status: Acute (3) Palpitations Status: Acute (4) Right inguinal hernia Status: Acute Objective Vital Signs Vital Signs Past 12 Hours Date Time Temp Pulse Resp B/P (MAP) Pulse Ox O2 Delivery O2 Flow Rate FiO2 12/23/16 07:25 36.7 102 20 115/67 (83) 95 Nasal Cannula 2.0 12/23/16 00:53 36.6 82 18 119/76 (90) 93 12/23/16 00:00 Nasal Cannula 2.0 Exam VSS Afebrile Incisions clean Foot unchanged. No pain to palpation of foot Laboratory and Microbiology Results Past 24 Hours Test 12/22/16 11:38 12/22/16 16:25 12/22/16 19:29 12/23/16 07:32 Range/Units Bedside Glucose 161 149 188 191 70-99 mg/dl Imp: Post failed bypass left lower extremity Plan: Continue present treatment. Will wait to hear from [facility] about bed availability next week.
[2016-12-23 14:54] VITALS: BP 123/63; PULSE 103; TEMP 37.3; O2SAT 96
[2016-12-23 16:00] VITALS: O2SAT 96
[2016-12-23] MEDS: BIMATOPROST 0.01% OP SOLN 2.5 ML BTL OPB SCH (20:38)
--- NOTE | 2016-12-23 20:38 | Progress Note ---
Progress Note Date of Service Dec 23, 2016. Progress Note 86-year-old maleone revascularization procedure for his severe occlusive peripheral arterial disease of his left leg. Unfortunately it was unsuccessful. He has multiple medical problems including coronary artery disease, subacute frontal CVA,type 2 diabetes mellitus, arterial hypertension, hypothyroidism. At this point there is no surgical intervention option. Patient is for comfort care. Today he seems to be resting comfortably. Yesterday and today his daughter brought his dog Sidney to visit him and that made him very happy. He denied any headache. No dizziness. He is mentally alert. No chest pain no shortness of breath. No abdominal pain no vomiting. He does have a Bhandari catheter in place because of urinary retention. His left foot pain seems to be under control. EXAMINATION: GENERAL : Well developed. Well nourished. No acute distress. VITAL SIGNS : Blood Pressure : 115/67, pulse 102, respiration 20, temperature 36.7, oxygen saturation 95% on 2 L oxygen by nasal cannula SKIN : Warm and dry. No rash. HEENT :Oxygen cannula in place NECK: Supple nontender. No JVD. HEART: Regular heart tones with 2/6 systolic murmur. No rub no gallop. LUNGS: Clear. Normal breath sounds. ABDOMEN: Soft nontender. No organomegaly or masses. Good bowel sounds. EXTREMITIES: His left foot is cold. Skin is monitored. Dark discoloration noted. ASSESSMENT: * ischemia left foot * Status post vascularization procedure which was not successful. * Coronary artery disease * Type 2 diabetes mellitus PLAN: * continue with comfort care * Maintain Bhandari catheter in place * We'll start planning on discharge the [facility]
[2016-12-23 23:21] VITALS: BP 133/74; PULSE 78; TEMP 36.9; O2SAT 96
[2016-12-24] MEDS: MoRPHine SULFATE 4 MG/ML 1 ML CARP\\VIAL IV PRN ×2 (00:15→19:59)
[2016-12-24] MEDS: SODIUM CHLORIDE 0.9% 1000ML 1,000 ML IV SCH ×3 (01:20→21:19)
[2016-12-24] MEDS: INSULIN ASPART 100 UNITS/ML 3 ML PEN SC SCH ×4 (06:30→21:18)
[2016-12-24] MEDS: LEVOTHYROXINE 175 MCG TAB PO SCH (06:32)
[2016-12-24 07:18] VITALS: BP 117/74; PULSE 99; TEMP 36.8; O2SAT 96
[2016-12-24] MEDS: DORZOLAMIDE/TIMOLOL 22.3/6.8MG/ML 10 ML BTL OPB SCH ×2 (08:00→20:02)
[2016-12-24] MEDS: METOPROLOL TARTRATE 25 MG TAB PO SCH ×2 (08:00→20:21)
[2016-12-24] MEDS: BOOST GLUCOSE CONTROL PO SCH ×3 (08:00→20:20)
[2016-12-24] MEDS: PANTOprazole SOD 40 MG TAB PO SCH (08:00)
--- NOTE | 2016-12-24 09:26 | Progress Note ---
Progress Note Date of Service: Dec 24, 2016. Subjective Claims foot feels much better Problem List Medical Problems: (1) Bradycardia Status: Acute (2) Dizziness Status: Acute (3) Palpitations Status: Acute (4) Right inguinal hernia Status: Acute Objective Vital Signs Vital Signs Past 12 Hours Date Time Temp Pulse Resp B/P (MAP) Pulse Ox O2 Delivery O2 Flow Rate FiO2 12/24/16 08:00 Nasal Cannula 2.0 12/24/16 07:18 36.8 99 20 117/74 (88) 96 Nasal Cannula 2.0 12/24/16 00:00 Nasal Cannula 2.0 12/23/16 23:21 36.9 78 20 133/74 (93) 96 Nasal Cannula 2.0 Exam VSS Afebrile No changes in exam Laboratory and Microbiology Results Past 24 Hours Test 12/23/16 11:31 12/23/16 16:40 12/23/16 19:33 12/24/16 07:23 Range/Units Bedside Glucose 203 202 170 171 70-99 mg/dl Imp: Post failed bypass Plan: Patient for placement when bed available.
--- NOTE | 2016-12-24 13:34 | Progress Note ---
Progress Note Date of Service Dec 24, 2016. Progress Note 86-year-old male underwent a revascularization procedure for his severe occlusive peripheral arterial disease. Unfortunately the graft occluded. No additional revascularization procedure if possible. His medical history include coronary artery disease with history of coronary artery bypass graft, arterial hypertension, type 2 diabetes mellitus, subacute cerebral ischemia in the frontal lobe, hypothyroidism, hyperlipidemia. At this point comfort care has been selected as an option after discussion with the family. We are planning on getting the patient to [facility]. He seems to be resting comfortably. Medicated as needed for pain. He is no longer agitated. He does not seem to be in any distress. He has poor appetite. He is confused. EXAMINATION: GENERAL : Well developed. no distress VITAL SIGNS : Blood Pressure : 117/74, pulse 99, respiration 20, temperature 36.8, oxygen saturation 96% on 2 L oxygen by nasal cannula. SKIN : Warm and dry. No rash. HEENT :Oxygen cannula in place NECK : Supple. No adenopathy. no JVD. HEART: Regular heart tones with 2/6 systolic murmur. No rub no gallop. LUNGS: Clear. Normal breath sounds. ABDOMEN: Soft nontender. EXTREMITIES: Ischemia of the left foot. The distal part of his left foot is cold to touch. Skin is mottled. LABORATORY TESTS: his blood sugars are monitored ASSESSMENT: * ischemia of the left foot * Failed revascularization procedure * Subacute frontal CVA * Coronary artery disease * Type 2 diabetes mellitus PLAN: * continuing pain controlled * [facility]
[2016-12-24 15:07] VITALS: BP 131/88; PULSE 104; TEMP 37; O2SAT 95
[2016-12-24 16:00] VITALS: O2SAT 95
[2016-12-24] MEDS: BIMATOPROST 0.01% OP SOLN 2.5 ML BTL OPB SCH (20:02)
[2016-12-24 23:32] VITALS: BP 131/80; PULSE 77; TEMP 36.6; O2SAT 96
[2016-12-25] MEDS: MoRPHine SULFATE 4 MG/ML 1 ML CARP\\VIAL IV PRN ×2 (00:47→19:42)
[2016-12-25] MEDS: LEVOTHYROXINE 175 MCG TAB PO SCH (06:14)
[2016-12-25 07:15] VITALS: BP 143/78; PULSE 78; TEMP 36.5; O2SAT 97
[2016-12-25] MEDS: SODIUM CHLORIDE 0.9% 1000ML 1,000 ML IV SCH ×2 (07:47→18:03)
[2016-12-25] MEDS: METOPROLOL TARTRATE 25 MG TAB PO SCH ×2 (07:47→20:00)
[2016-12-25] MEDS: DORZOLAMIDE/TIMOLOL 22.3/6.8MG/ML 10 ML BTL OPB SCH ×2 (07:47→20:27)
[2016-12-25] MEDS: PANTOprazole SOD 40 MG TAB PO SCH (07:47)
[2016-12-25] MEDS: BOOST GLUCOSE CONTROL PO SCH ×4 (07:49→20:00)
[2016-12-25] MEDS: INSULIN ASPART 100 UNITS/ML 3 ML PEN SC SCH ×4 (09:27→20:35)
--- NOTE | 2016-12-25 10:02 | Progress Note ---
Progress Note Date of Service: Dec 25, 2016. Subjective 86 yo m with multiple medical problems, s/p LLE fem-pop hybrid BPG which is now occluded, seen in f/u today. Pt states feeling ok, denies any complaints presently. Problem List Medical Problems: (1) Bradycardia Status: Acute (2) Dizziness Status: Acute (3) Palpitations Status: Acute (4) Right inguinal hernia Status: Acute Objective Vital Signs Vital Signs Past 12 Hours Date Time Temp Pulse Resp B/P (MAP) Pulse Ox O2 Delivery O2 Flow Rate FiO2 12/25/16 07:15 36.5 78 20 143/78 (99) 97 12/25/16 00:20 Nasal Cannula 2.0 12/24/16 23:32 36.6 77 16 131/80 (97) 96 Nasal Cannula 2.0 Exam CONST: A&O x2, NAD, chronically ill appearing, confused, elderly male CHEST: RRR, lungs decreased but ctab ABD:soft, nontender, + bs x 4 quad EXT: LLE incisions C/D/I with fernando. + local edema, old ecchymosis. L foot warm to forefoot area. toes cap refill ~4 sec, do not appear ischemic. Heel with early pressure area, no ulceration. Laboratory and Microbiology Results Past 24 Hours Test 12/24/16 11:22 12/24/16 16:35 12/24/16 20:00 12/25/16 07:25 Range/Units Bedside Glucose 187 191 168 198 70-99 mg/dl ASSESSMENT and PLAN: s/p LLE fem-pop hybrid bpg, occluded Severe PAD with rest pain Pt doing as expected with occluded BPG. OK for d/c to SNF when bed available.
[2016-12-25 14:57] VITALS: BP 137/78; PULSE 81; TEMP 36.6; O2SAT 96
[2016-12-25 16:00] VITALS: O2SAT 96
--- NOTE | 2016-12-25 18:03 | Progress Note ---
Progress Note Date of Service Dec 25, 2016. Progress Note 86-year-old male admitted by Dr. Barber Valenzuela and underwent a vascular bypass of his left leg because of severe occlusive peripheral arterial disease with ischemic left foot. The procedure was well-tolerated. Initially he had a flow that could be detected by ultrasound. Subsequently he developed severe pain in the left foot and an arterial ultrasound was done showing that the graft was occluded. There was no possibility of other revascularization procedure. Comfort Care was elected after discussion with the daughter. His medical history is significant for coronary artery disease with history of coronary artery bypass graft, type 2 diabetes mellitus, arterial hypertension, hypothyroidism. Overall he has been stable. His pain is controlled. He is required morphine at times. He denied any headache or dizziness or lightheadedness. No chest pain no shortness of breath. No abdominal pain no nausea no vomiting. Poor appetite. No pain in his back. His left foot pain is persistent but reasonably controlled. EXAMINATION : GENERAL: Well-developed. No acute distress VITAL SIGNS: Blood pressure 143/78, pulse 78, respiration 20, temperature 36.5, oxygen saturation 97% on 2 L oxygen by nasal cannula. SKIN: Warm and dry. No rash. HEENT: Oxygen cannula in place. NECK: Supple. Nontender. No JVD. HEART: Regular heart sounds with 2/6 systolic murmur LUNGS: Clear ABDOMEN: Soft nontender without organomegaly or masses BACK: No spinal tenderness EXTREMITIES: Ischemic left foot. His left foot is cold especially the distal part. LABORATORY TESTS : His blood sugars have been monitored. They have been in good range. I have not ordered any additional tests because of the comfort care level. ASSESSMENT : * Severe peripheral arterial disease of the left leg status post revascularization procedure which unfortunately was not successful. Ischemia of the left foot. * Coronary artery disease * Type 2 diabetes mellitus * Arterial hypertension * Hypothyroidism * History of adenocarcinoma of the distal esophagus which was successfully resected endoscopically with submucosal resection PLAN : * Continue the same medications * Continue pain control * Trying to get [facility] to [facility]. There was no bed available today. We'll try tomorrow. * I spoke with his daughter choice today. As I explained to her in the future he may very well need a below the knee amputation but for now we will continue with the comfort care and transfer to the correction and decide on further interventions in the future.
[2016-12-25] MEDS: BIMATOPROST 0.01% OP SOLN 2.5 ML BTL OPB SCH (20:27)
[2016-12-25 23:41] VITALS: BP 131/68; PULSE 72; TEMP 36.9; O2SAT 94
[2016-12-26] MEDS: SODIUM CHLORIDE 0.9% 1000ML 1,000 ML IV SCH ×2 (03:25→13:07)
[2016-12-26] MEDS: MoRPHine SULFATE 4 MG/ML 1 ML CARP\\VIAL IV PRN ×2 (03:46→15:57)
[2016-12-26] MEDS: LEVOTHYROXINE 175 MCG TAB PO SCH (06:15)
[2016-12-26 07:42] VITALS: BP 115/69; PULSE 81; TEMP 34.7; O2SAT 92
[2016-12-26] MEDS: METOPROLOL TARTRATE 25 MG TAB PO SCH ×2 (07:51→20:08)
[2016-12-26] MEDS: DORZOLAMIDE/TIMOLOL 22.3/6.8MG/ML 10 ML BTL OPB SCH ×2 (07:51→20:07)
[2016-12-26] MEDS: BOOST GLUCOSE CONTROL PO SCH ×3 (07:52→20:00)
[2016-12-26] MEDS: PANTOprazole SOD 40 MG TAB PO SCH (07:52)
[2016-12-26] MEDS ORDERED: MORP1INJ SL (08:36)
[2016-12-26] MEDS ORDERED: NVLGIPEN SC (08:36)
[2016-12-26] MEDS ORDERED: ATROPO SL (08:36)
[2016-12-26] MEDS ORDERED: ATV5 SL (08:36)
--- NOTE | 2016-12-26 08:46 | Discharge Instructions ---
Discharge Instructions Date of Service Dec 26, 2016. Admission Reason for Admission: Left Popliteal Occlusion with Rest Pain Failed bypass surgery Coronary artery disease Type 2 diabetes mellitus Arterial hypertension Hypothyroidism Glaucoma Urinary retention Hyperlipidemia Comfort Care Discharge Discharge Diagnosis / Problem: occlusive peripheral arterial disease. Failed bypass surgery. Coronary ar Discharge Goals Goal(s): Decrease discomfort, Improve function, Increase independence, Improve disease control Activity Recommendations Activity Level: Assistance Required . Additional Information Patient informed of condition: Yes Advance Directives: No DNR: Yes Level of Care: Skilled Communicable Disease: No Prognosis: Deteriorating Bhandari Catheter: Yes Current Hospital Diet Patient's current hospital diet: AHA Diet (Heart Healthy) Discharge Diet Recommended Diet: Regular Diet Procedures Procedures Performed: Left femoral to popliteal hybrid bypass, exploration of peroneal artery, left lower extremity arteriogram with insertion of popliteal stent. Pending Studies Studies pending at discharge: no Laboratory Results Hemoglobin A1c Test 12/16/16 05:23 Range/Units Estimated Average Glucose 126 mg/dl Hemoglobin A1c 6.0 H 4.5-5.6 % Medical Emergencies . Who to Call and When: Medical Emergencies: If at any time you feel your situation is an emergency, please call 911 immediately. . Non-Emergent Contact Non-Emergency issues call your: Primary Care Provider . . "Provider Documentation" section prepared by Wesley Clark. . Core Measure Problem Core Measures: None
--- NOTE | 2016-12-26 08:50 | Progress Note ---
Progress Note Date of Service: Dec 26, 2016. Subjective 86 yo m with multiple medical problems, s/p LLE fem-pop hybrid BPG, now occluded , seen in f/u today. Pt denies any complaints presently. Pt with dementia. Problem List Medical Problems: (1) Bradycardia Status: Acute (2) Dizziness Status: Acute (3) Palpitations Status: Acute (4) Right inguinal hernia Status: Acute Objective Vital Signs Vital Signs Past 12 Hours Date Time Temp Pulse Resp B/P (MAP) Pulse Ox O2 Delivery O2 Flow Rate FiO2 12/26/16 08:28 Nasal Cannula 2.0 12/26/16 07:42 34.7 81 16 115/69 (84) 92 Nasal Cannula 3.0 12/25/16 23:54 Nasal Cannula 2.0 12/25/16 23:41 36.9 72 18 131/68 (89) 94 Nasal Cannula 2.0 Exam CONST: A&O x1, NAD, chronically ill appearing male. Confused CHEST: RRR lungs decreasd, but ctab ABD: soft, nontender, + bs x 4 quad EXT: LLE incisions C/D/I with fernando, L foot warm but toes are cool, toes with cap refill 3 sec. Laboratory and Microbiology Results Past 24 Hours Test 12/25/16 11:14 12/25/16 16:07 12/25/16 19:20 12/26/16 07:31 Range/Units Bedside Glucose 182 165 189 170 70-99 mg/dl ASSESSMENT adn PLAN: s/p LLE fem-pop hybrid BPG, occluded Severe PAD with rest pain Pt stable. Pt d/c to [facility] today if possible.
[2016-12-26] MEDS: INSULIN ASPART 100 UNITS/ML 3 ML PEN SC SCH ×4 (09:01→21:16)
[2016-12-26 10:43] VITALS: BP 122/52; PULSE 82; TEMP 36.8; O2SAT 96
[2016-12-26 14:56] VITALS: BP 147/61; PULSE 67; TEMP 36.5; O2SAT 92
[2016-12-26] MEDS ORDERED: NURSING VERBAL MED ORDER ONE (15:00)
[2016-12-26 16:00] VITALS: O2SAT 92
--- NOTE | 2016-12-26 17:53 | Progress Note ---
Progress Note Date of Service Dec 26, 2016. Progress Note 86-year-old male admitted with multiple problems including: * Occlusive arterial disease of the left leg with ischemic left foot * Underwent the bypass surgery. Initially was successful. Subsequently the graft occluded. * Coronary artery disease * Arterial hypertension * Type 2 diabetes mellitus * Hypothyroidism Patient has been resting. His pain in the left foot is under control. He denied any headache or dizziness. No chest pain no shortness of breath. No abdominal pain. Poor appetite. No problem with his bowel movements. He did have urinary retention and he has a Bhandari catheter in place. EXAMINATION : GENERAL: Well-developed in no distress VITAL SIGNS: 115/69, pulse 81, respirations 16, temperature 34.7 oxygen saturation 92% on 3 L oxygen by nasal cannula SKIN: Warm and dry. No rash. HEENT: Oxygen cannula in place NECK: Supple. Nontender. No JVD. HEART: Regular heart sounds with 2/6 systolic murmur LUNGS: Clear ABDOMEN: Soft nontender without organomegaly or masses BACK: No spinal tenderness EXTREMITIES: Ischemic left foot especially the distal part of the foot. It is cold. Mottled. No ulcerations. LABORATORY TESTS : BSG's today were 170, 174, 135. ASSESSMENT : * Severe occlusive arterial disease left leg with ischemia of the left foot * Unsuccessful bypass surgery * Coronary artery disease * Type 2 diabetes mellitus * Arterial hypertension * Hypothyroidism PLAN : * Continuing his medications * IV fluid discontinued * We are working on getting him to the custodial. There was no bed available. According to case management note there is a bed available tomorrow and we will proceed with transfer. * Comfort Care
[2016-12-26] MEDS: BIMATOPROST 0.01% OP SOLN 2.5 ML BTL OPB SCH (20:07)
[2016-12-27] VITALS: BP 145/74; PULSE 46; TEMP 36.4; O2SAT 97
[2016-12-27] MEDS: MoRPHine SULFATE 4 MG/ML 1 ML CARP\\VIAL IV PRN ×2 (05:37→12:06)
[2016-12-27] MEDS: LEVOTHYROXINE 175 MCG TAB PO SCH (05:38)
[2016-12-27] MEDS: DORZOLAMIDE/TIMOLOL 22.3/6.8MG/ML 10 ML BTL OPB SCH (07:23)
[2016-12-27] MEDS: METOPROLOL TARTRATE 25 MG TAB PO SCH (07:24)
[2016-12-27] MEDS: BOOST GLUCOSE CONTROL PO SCH ×2 (07:24→11:19)
[2016-12-27] MEDS: PANTOprazole SOD 40 MG TAB PO SCH (07:24)
[2016-12-27 07:34] VITALS: BP 117/65; PULSE 78; O2SAT 93
[2016-12-27 08:04] VITALS: O2SAT 93
[2016-12-27] MEDS: INSULIN ASPART 100 UNITS/ML 3 ML PEN SC SCH (11:06)
[2016-12-27 11:35] VITALS: BP 120/74; PULSE 68; TEMP 35.8; O2SAT 94
--- NOTE | 2016-12-27 19:58 | Progress Note ---
Progress Note Date of Service Dec 27, 2016. Progress Note 86-year-old male with severe occlusive peripheral arterial disease of the left leg. He underwent a revascularization procedure. Unfortunately postoperatively the graft occluded completely. No other surgical options were available. Comfort care was elected. His medical history is quite extensive including coronary artery disease, type 2 diabetes mellitus, arterial hypertension, hypothyroidism. Medications were ordered to keep him comfortable and control his left foot pain. Arrangements were made for admission to the retirement. There was no bed available yesterday. EXAMINATION: GENERAL : Well developed. No acute distress. VITAL SIGNS : Blood Pressure : 117/65, pulse 78, respiration 20, temperature 36.4, oxygen saturation 93% on room air. SKIN : Warm and dry. No rash. HEENT :Wears glasses. No mucosal abnormalities. NECK : Supple. No adenopathy. No thyromegaly. No JVD. HEART: Regular heart tones with 2/6 systolic murmur. No rub no gallop. LUNGS: Clear. Normal breath sounds. ABDOMEN: Soft nontender. No organomegaly or masses. BACK: No spine or CVA tenderness. EXTREMITIES : No edema clubbing or cyanosis. No joint or muscle tenderness.ischemia of the left foot. The left foot is cold especially the distal part. Skin changes with mottling. No open ulcers. ASSESSMENT: * occlusive arterial disease of the left leg * Failed revascularization procedure * Coronary artery disease * Type 2 diabetes mellitus * Arterial hypertension * Hyperlipidemia * Hypothyroidism * Urinary retention. Has a Bhandari catheter in place PLAN: * continuing the same medications * Bed is available at [facility] today. * For pain control at the retirement morphine sulfate liquid was ordered. Sublingual lorazepam if needed. Atropine if needed for increased secretions * he is a DNR status
--- NOTE | 2016-12-29 15:02 | DISCHARGE SUMMARY ---
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 DISCHARGE DIAGNOSES: 1. Status post left lower extremity femoral to popliteal artery hybrid bypass, exploration of peroneal artery and angiography with insertion of popliteal artery stent. 2. Occluded femoral to popliteal artery bypass graft. 3. Severe peripheral arterial disease with left foot ischemia. 4. Cerebrovascular accident. Occluded femoral to popliteal artery bypass graft. DISCHARGE CONDITION: Stable. CONSULTATIONS IN THE HOSPITAL: Included medical care with Dr. Clark, neurology consultation with Dr. Ean Al, palliative care consult with Tamanna Villarreal and critical care consultation. PROCEDURES WHILE IN THE HOSPITAL: Left lower extremity femoral to popliteal artery hybrid bypass, exploration of peroneal artery, and left lower extremity angiogram with insertion of a popliteal stent. This resulted in an EBL of approximately 600 mL total and did not have any significant complications during the procedure. HISTORY OF PRESENT ILLNESS: Mr. Slaughter is an 86-year-old male who was being seen by Dr. Valenzuela in the office on a fairly regular basis regarding his peripheral arterial disease as well as his carotid disease. The patient was being seen at 6-month intervals and at his most recent appointment he noted complaints of significant discomfort in his left leg and foot. The patient states it was worse with walking, however his left foot was becoming painful more in the day as opposed to only with ambulation. He also describes pain in his left foot when lying in bed at night. 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 This was performed without any intervention as the lesion was unable to be crossed with a wire. By this time the patient had begun to have some red spots appear on his left foot that have become more confluent. Due to the severity of his left foot ischemia the patient was advised to consider either amputation of the leg or fem-pop bypass. The patient elected to proceed with a fem-pop bypass. After discussion of the risks, options, benefits and alternatives. HOSPITAL COURSE: The patient was admitted 12/15/2016 after undergoing his left lower extremity fem-pop bypass. As I said this was performed without significant complications. He did have an EBL of 600 mL and ended up requiring a total of 2 units of blood postoperatively due to expected postop anemia. The patient initially had appeared to be stable, but was complaining of pain in his left leg which was controlled with narcotic medication. The patient's daughter began to notice some concerning symptoms on postop day 2 including some behavioral changes with eating the wrong objects to perform certain activities. Due to her background, she noticed this as possibly being a frontal lobe problem and requested that he be further evaluated. After being evaluated by neurology the patient was found to have had a small area of frontal infarct. He was also noted to have a 70% stenosis of his left internal carotid artery on ultrasound evaluation. On postop day 3, the patient was noted to have a severely worsened pain in his left lower extremity and an ultrasound of his bypass graft was ordered which had demonstrated occlusion of his fem-pop bypass. Unfortunately, due to the patient's current medical status and the possibility of placing a new functioning bypass no further surgical intervention was recommended at that point. The patient's daughter was advised that as the patient's discomfort became unbearable an amputation could be considered; however, due to the patient's current medical status and after discussion with the patient's primary care practitioner the patient's daughter elected to proceed with comfort measures only. The patient appears to be continued to deteriorate and eventually was transferred to [facility] for comfort measures. PHYSICAL EXAMINATION: VITAL SIGNS: On day of discharge, the patient's vital signs were as follows: Pulse of 87, respiratory rate of 24, blood pressure of 115/61, temperature of 36.8 and pulse oximetry of 94% on 2 liters nasal cannula. CONSTITUTIONAL GENERAL: The patient is a chronically ill appearing elderly male in no acute distress. He is resting in bed that morning. HEAD: Normocephalic and atraumatic. EYES: EOMI. He is alert and oriented x1 and appears to be somewhat confused. He denied any pain and is unable to relate any history either remote or recent. He is alert to his name. CARDIOVASCULAR: His heart demonstrates regular rate and rhythm. LUNGS: Decreased but clear. ABDOMEN: Soft, nontender. EXTREMITIES: Bilateral upper extremities demonstrate no cyanosis, edema, clubbing, varicosities or ulcers. His left lower extremity does have surgical wounds with fernando in place. Lungs are clean, dry, and intact. He does have some edema and ecchymosis there. Upon further palpation they do appeared to be somewhat tender as he does wince somewhat in pain. His left foot was warm to the forefoot, toes are cool but do not appear to be mottled. He does have capillary refill at 5 seconds. The patient is unable to follow commands at this time. DIET UPON DISCHARGE: Should be a low-cholesterol AHA diet. MEDICATIONS: Reconciled in the chart and are as per his discharge instructions. Followup should be for staple removal in Dr. Valenzuela's office approximately 2 weeks after discharge; however, if they wish to remove the fernando at the [facility] that it is okay as well.
== END 2016-12-27 13:38 | DRG 252 ==
LOC: C.ACU 06:04 → C.MSICU 12:08 → ENRESERV 13:27 → C.2T 12-16 18:39 → C.2E 12-18 14:43 → ENRESERV 12-21 08:05 → C.4E 12-21 09:13
PROVIDERS: ADMIT Surgery Vascular Surgery; ATTEND Surgery Vascular Surgery
PROC: 047 Lower Arteries, Dilation (ICD-10-PCS; principal; 2016-12-15 08:00)
PROC: 041L0JL Bypass Left Femoral Artery to Popliteal Artery with Synthetic Substitute, Open Approach (ICD-10-PCS; principal; 2016-12-15 08:00)
DX: I70.222 Atherosclerosis of native arteries of extremities with rest pain, left leg (principal); I63.9 Cerebral infarction, unspecified; T82.858A Stenosis of other vascular prosthetic devices, implants and grafts, initial encounter; D62 Acute posthemorrhagic anemia; Z51.5 Encounter for palliative care; E11.9 Type 2 diabetes mellitus without complications; R29.702 NIHSS score 2; I25.10 Atherosclerotic heart disease of native coronary artery without angina pectoris; I11.9 Hypertensive heart disease without heart failure; I65.22 Occlusion and stenosis of left carotid artery; E03.9 Hypothyroidism, unspecified; H40.9 Unspecified glaucoma; Z51.81 Encounter for therapeutic drug level monitoring; Z79.899 Other long term (current) drug therapy; Z79.4 Long term (current) use of insulin; Z66 Do not resuscitate; Z95.1 Presence of aortocoronary bypass graft; Z86.73 Personal history of transient ischemic attack (TIA), and cerebral infarction without residual deficits; Z85.01 Personal history of malignant neoplasm of esophagus; Z87.891 Personal history of nicotine dependence; Z80.0 Family history of malignant neoplasm of digestive organs; Z82.49 Family history of ischemic heart disease and other diseases of the circulatory system; Z82.5 Family history of asthma and other chronic lower respiratory diseases; Y83.2 Surgical operation with anastomosis, bypass or graft as the cause of abnormal reaction of the patient, or of later complication, without mention of misadventure at the time of the procedure